=== PATIENT | female | born 1935 | race Caucasian/White ===

== ENCOUNTER → 2016-09-18 | Outpatient (CLI) | payer MEDICARE, BC ==
[~2016-09-18] MED LIST: ACTOS 15MG TAB15 MG PO; ALDACTONE 25MG25 M1 PO; ARICEPT10 MG PO; ATENOLOL50 MG PO; ATIVAN 1MG T1 MG/TAB PO; ATIVAN0.5 MG PO; ATORVASTATIN; AZILECT0.5 MG PO; BIOTIN1 POW PO; CATAPRES0.3 MG PO; CEPHALEXIN500 M1 PO; COUMADIN 5MG5 MG/TAB PO; COZAAR100 MG PO; CYMBALTA 60MG60 MG PO; CYMBALTA30 MG PO; DETROL LA4 PO; FUROSEMIDE40 MG PO; GLUCOPHAGE1000 MG PO; HYDRALAZINE50 MG PO; LASIX 40MG TABL40 MG PO; LIORESAL 1010 MG/TAB PO; LIPITOR 40MG TA40 MG PO; LIPITOR40 MG PO; LISINOPRIL10 MG PO; LOVENOX 100100 MG/ML SQ; MAG-OX 400400 MG PO; MAG-OX 400400 MG/TAB PO; METFORMIN HCL500 M1 PO; METFORMIN1000 MG PO; METRONIDAZOLE; MICRO-K LS20 MEQ PO; NAMENDA XR 28MG PO; NEURONTIN300 MG/CAP PO; NEXIUM 40MG40 MG PO; NEXIUM40 MG PO; NORVASC 5MG5 MG/TAB PO; POTASSIUM CHLO10 ME2 PO; RANITIDINE150 MG PO; REQUIP 1MG T1 MG/TAB PO; REQUIP XL6 MG PO; SENNA8.6 MG PO; SINEMET 25/101 UDTAB PO; SPECTAZOLE 1% C15 GM TP; SYNTHROID0.05 MG PO; TENORMIN 2525 MG/TAB PO; TRIAMCINOLONE A15 GM TP; TYLENOL 325MG325 MG PO; VALIUM 5MG T5 MG/TAB PO; VITAMIN B-1000 MCG/T PO; VITAMIN D31000 IU PO; WARFARIN SOD5 MG PO
== END ==
LOC: WCC 09:30
DX: I87.8 Other specified disorders of veins (principal)
CPT/HCPCS: G0463

== ENCOUNTER → 2017-02-26 | Emergency (ER) | payer MEDICARE, BC ==
[~2017-02-26] VITALS: Ht 170.2 cm; Wt 92.3 kg
[2017-02-26 11:38] VITALS: BP 154/72; PULSE 79; TEMP 97.3
== END | disposition home or self-care (01) ==
LOC: COL.ER 11:34
DX: M54.42 Lumbago with sciatica, left side (principal); G20 Parkinson's disease

== ENCOUNTER → 2017-03-17 | Outpatient (CLI) | payer MEDICARE, BC | LOC: MHCPAIN 11:24 | DX: G89.29 Other chronic pain (principal); M47.27 Other spondylosis with radiculopathy, lumbosacral region; M53.3 Sacrococcygeal disorders, not elsewhere classified; M79.2 Neuralgia and neuritis, unspecified; M79.1 Myalgia; Z87.891 Personal history of nicotine dependence; Z79.01 Long term (current) use of anticoagulants | CPT/HCPCS: G0463 ==

== ENCOUNTER → 2017-08-19 | Outpatient (CLI) | payer MEDICARE, BC | LOC: MHCPAIN 11:17 | DX: G89.29 Other chronic pain (principal); M47.27 Other spondylosis with radiculopathy, lumbosacral region; M53.3 Sacrococcygeal disorders, not elsewhere classified; M41.9 Scoliosis, unspecified; Z87.891 Personal history of nicotine dependence | CPT/HCPCS: G0463 ==

== ENCOUNTER → 2017-08-28 | Outpatient (CLI) | payer MEDICARE, BC | LOC: MHCPAIN 07:51 | DX: M47.27 Other spondylosis with radiculopathy, lumbosacral region (principal); M48.061 Spinal stenosis, lumbar region without neurogenic claudication | CPT/HCPCS: J1100; J3010; Q9967 ==

== ENCOUNTER → 2017-09-09 | Outpatient (CLI) | payer MEDICARE, BC | LOC: MHCPAIN 12:40 | DX: G89.29 Other chronic pain (principal); M47.817 Spondylosis without myelopathy or radiculopathy, lumbosacral region; M54.16 Radiculopathy, lumbar region; M53.3 Sacrococcygeal disorders, not elsewhere classified; M41.9 Scoliosis, unspecified | CPT/HCPCS: G0463 ==

== ENCOUNTER → 2017-09-10 | Outpatient (CLI) | payer MEDICARE, BC | LOC: COL.VAS 09:45 | DX: I67.89 Other cerebrovascular disease (principal) ==

== ENCOUNTER → 2017-09-25 | Outpatient (CLI) | payer MEDICARE, BC | LOC: MHCPAIN 07:35 | DX: M47.817 Spondylosis without myelopathy or radiculopathy, lumbosacral region (principal); M41.26 Other idiopathic scoliosis, lumbar region; M46.96 Unspecified inflammatory spondylopathy, lumbar region | CPT/HCPCS: J1040; J3010; Q9967 ==

== ENCOUNTER 2017-10-16 22:54 | Emergency (ER) | payer MEDICARE, BC ==
[~2017-10-16] VITALS: Ht 170.2 cm; Wt 91.8 kg
[2017-10-16 23:03] VITALS: BP 155/66; PULSE 87; TEMP 97.7
[2017-10-16] MEDS ORDERED: 00186-0370-20 IH (23:29)
[2017-10-16] MEDS ORDERED: DULCOLAX TAB5 MG RC (23:29)
[2017-10-16] MEDS ORDERED: PEPCID 20MG TAB20 MG PO (23:31)
[2017-10-16] MEDS ORDERED: LASIX 40MG TABL40 MG PO (23:32)
[2017-10-16] MEDS ORDERED: NORCO 325 MG-51 TAB PO (23:34)
[2017-10-16] MEDS ORDERED: XALATAN EYE DROPS OD (23:35)
[2017-10-16] MEDS ORDERED: COZAAR 25MG25 MG/TAB PO (23:36)
[2017-10-16] MEDS ORDERED: MIRALAX 255 GM255 GM PO (23:38)
[2017-10-16] MEDS ORDERED: ALDACTONE 25MG25 M1 PO (23:39)
[2017-10-16] MEDS ORDERED: DESYREL 50MG50 MG PO (23:40)
[2017-10-17 00:01] LABS: BASO % 0.4 % (0.0-2.0); EOS % 0.1 % (0-4.0); GRAN % 84.5 % (42.2-75.2); LYMPH # 0.9 (1.2-3.4); LYMPH % 8.9 % (20.0-51.0); MEAN CELL VOLUME 98 fl (80.0-100.0); MEAN CORPUSCULAR HGB CONC 32 g/dl (33.0-37.0); MEAN PLATELET VOLUME 10.6 fl (7.4-10.4); MONO # 0.6 (0.1-0.6); MONO % 5.5 % (1.7-9.3); PLATELET COUNT 237 K/mm3 (130-400); RED BLOOD COUNT 3.77 M/mm3 (4.10-5.30)
[2017-10-17 00:05] LABS: PARTIAL THROMBOPLASTIN TIME 31.3 SECONDS (26.0-37.0)
[2017-10-17 00:06] LABS: HEMATOCRIT 36.8 % (37.0-47.0); HEMOGLOBIN 11.8 g/dl (12.5-16.0); MEAN CORPUSCULAR HEMOGLOBIN 31 pg (27.0-31.0)
[2017-10-17 00:11] LABS: ALANINE AMINOTRANSFERASE 21 U/L (9-52); ALKALINE PHOSPHATASE 109 U/L (50-136); ANION GAP 12 mmol/L (7-16); AST,SGOT 18 U/L (15-37); BILIRUBIN,TOTAL 0.4 mg/dL (0.0-1.0); BLOOD UREA NITROGEN 57 mg/dL (7-17); C-REACTIVE PROTEIN < 0.5 mg/dL (0.0-0.9); CALCIUM 9.7 mg/dL (8.4-10.2); CARBON DIOXIDE 26 mmol/L (22-30); CHLORIDE 100 mmol/L (98-107); CREATININE, serum 1.79 mg/dL (0.52-1.25); GLUCOSE 139 mg/dL (74-106); LIPASE 152 U/L (23-300); MAGNESIUM 2.3 mg/dL (1.6-2.3); PHOSPHOROUS 4.6 mg/dL (2.5-4.5); POTASSIUM 4.5 mmol/L (3.4-5.0); SODIUM 138 mmol/L (137-145); TOTAL PROTEIN 7.2 gm/dL (6.4-8.2)
[2017-10-17 00:19] LABS: TROPONIN-I 0.018 ng/mL (0.000-0.034)
[2017-10-17 00:49] LABS: COLLECTION METHOD CLEAN CATCH
[2017-10-17 01:04] LABS: MUCOUS Present /lpf; PH 5 (5-8); SQUAMOUS EPITHELIAL 0-2 /hpf; URINE APPEARANCE Hazy; URINE BACTERIA None Seen /hpf; URINE BILIRUBIN Negative (NEGATIVE); URINE BLOOD Negative (NEGATIVE); URINE COLOR Yellow; URINE GLUCOSE Negative (NEGATIVE); URINE KETONE Trace (NEGATIVE); URINE LEUKOCYTE ESTERASE Trace (NEGATIVE); URINE NITRATE Negative (NEGATIVE); URINE PROTEIN(semi-quant) Negative (NEGATIVE); URINE RBC 0-2 /hpf; URINE UROBILINOGEN Negative (NEGATIVE)
[2017-10-17] MEDS ORDERED: CEFTIN500 MG PO (03:09)
== END 2017-10-17 03:23 | disposition home or self-care (01) ==
LOC: COL.ER 22:54
PROVIDERS: Emergency Medicine
DX: N39.0 Urinary tract infection, site not specified (principal); G20 Parkinson's disease; Z86.718 Personal history of other venous thrombosis and embolism; Z90.710 Acquired absence of both cervix and uterus; Z79.01 Long term (current) use of anticoagulants; Z79.52 Long term (current) use of systemic steroids
CPT/HCPCS: C9113; J0696; J2270; J2405; J7040; J7050

== ENCOUNTER 2017-10-28 01:35 | Emergency (ER) | payer MEDICARE, BC ==
[~2017-10-28] VITALS: Ht 170.2 cm; Wt 88.2 kg
[~2017-10-28 01:35] MED LIST changes: +00186-0370-20 IH; +CEFTIN500 MG PO; +COZAAR 25MG25 MG/TAB PO; +DESYREL 50MG50 MG PO; +DULCOLAX TAB5 MG RC; +MIRALAX 255 GM255 GM PO; +NORCO 325 MG-51 TAB PO; +PEPCID 20MG TAB20 MG PO; +XALATAN EYE DROPS OD
[2017-10-28 01:42] VITALS: TEMP 98.7
[2017-10-28 02:01] LABS: BASO % 0.3 % (0.0-2.0); EOS # 0.1 (0.0-0.7); EOS % 0.7 % (0-4.0); GRAN # 5.5 (1.4-6.5); GRAN % 72.2 % (42.2-75.2); LYMPH # 1.3 (1.2-3.4); LYMPH % 17.6 % (20.0-51.0); MEAN CELL VOLUME 98 fl (80.0-100.0); MEAN CORPUSCULAR HGB CONC 32 g/dl (33.0-37.0); MEAN PLATELET VOLUME 10.4 fl (7.4-10.4); MONO # 0.6 (0.1-0.6); MONO % 8.4 % (1.7-9.3); PLATELET COUNT 194 K/mm3 (130-400); RED BLOOD COUNT 3.39 M/mm3 (4.10-5.30); REDCELL DISTRIBUTION WIDTH-CV 14.3 % (11.5-14.5)
[2017-10-28 02:02] LABS: HEMATOCRIT 33.2 % (37.0-47.0); HEMOGLOBIN 10.5 g/dl (12.5-16.0); MEAN CORPUSCULAR HEMOGLOBIN 31 pg (27.0-31.0)
[2017-10-28 02:08] LABS: INR 1.9 (0.8-3.0); PROTHROMBIN TIME 22.4 SECONDS (9.7-12.8)
[2017-10-28 02:28] LABS: ALBUMIN 3.5 gm/dL (3.5-5.0); BILIRUBIN,TOTAL 0.2 mg/dL (0.0-1.0); CALCIUM 8.9 mg/dL (8.4-10.2); CREATININE, serum 1.46 mg/dL (0.52-1.25); POTASSIUM 4.2 mmol/L (3.4-5.0); TOTAL PROTEIN 6.5 gm/dL (6.4-8.2)
[2017-10-28 02:39] LABS: TROPONIN-I 0.014 ng/mL (0.000-0.034)
[2017-10-28 03:37] LABS: COLLECTION METHOD CLEAN CATCH
[2017-10-28 03:47] LABS: MUCOUS Present /lpf; PH 5 (5-8); SQUAMOUS EPITHELIAL 0-2 /hpf; URINE APPEARANCE Clear; URINE BACTERIA None Seen /hpf; URINE BILIRUBIN Negative (NEGATIVE); URINE BLOOD Negative (NEGATIVE); URINE COLOR Yellow; URINE GLUCOSE Negative (NEGATIVE); URINE KETONE Trace (NEGATIVE); URINE LEUKOCYTE ESTERASE Negative (NEGATIVE); URINE NITRATE Negative (NEGATIVE); URINE PROTEIN(semi-quant) Negative (NEGATIVE); URINE RBC 0-2 /hpf; URINE UROBILINOGEN Negative (NEGATIVE)
[2017-10-28] MEDS ORDERED: CARAFATE 1GM1 G PO (04:12)
[2017-10-28 05:03] VITALS: BP 156/54; PULSE 70
== END 2017-10-28 05:08 | disposition home or self-care (01) ==
LOC: COL.ER 01:35
PROVIDERS: Emergency Medicine; Physician Assistant
DX: R10.13 Epigastric pain (principal); I10 Essential (primary) hypertension; G20 Parkinson's disease; Z86.718 Personal history of other venous thrombosis and embolism; Z98.890 Other specified postprocedural states; Z79.01 Long term (current) use of anticoagulants; Z79.51 Long term (current) use of inhaled steroids; Z88.2 Allergy status to sulfonamides
CPT/HCPCS: C9113; J2270; J2405; J7030

== ENCOUNTER 2017-12-18 10:57 | Inpatient (IN) | payer MEDICARE, BC ==
[~2017-12-18] VITALS: Ht 170.2 cm; Wt 91.8 kg
[~2017-12-18 10:57] MED LIST changes: -AZILECT0.5 MG PO; +AZILECT1 MG PO; +CARAFATE 1GM1 G PO
[2017-12-18 11:24] LABS: BASO % 0.3 % (0.0-2.0); EOS % 0.2 % (0-4.0); GRAN # 8.8 (1.4-6.5); GRAN % 84.2 % (42.2-75.2); LYMPH % 9.7 % (20.0-51.0); MEAN CELL VOLUME 97 fl (80.0-100.0); MEAN CORPUSCULAR HGB CONC 31 g/dl (33.0-37.0); MEAN PLATELET VOLUME 10.5 fl (7.4-10.4); MONO # 0.5 (0.1-0.6); MONO % 4.9 % (1.7-9.3); PLATELET COUNT 279 K/mm3 (130-400); RED BLOOD COUNT 2.83 M/mm3 (4.10-5.30); REDCELL DISTRIBUTION WIDTH-CV 14.8 % (11.5-14.5)
[2017-12-18 11:27] LABS: HEMATOCRIT 27.4 % (37.0-47.0); HEMOGLOBIN 8.5 g/dl (12.5-16.0); INR 3.1 (0.8-3.0); MEAN CORPUSCULAR HEMOGLOBIN 30 pg (27.0-31.0); PROTHROMBIN TIME 35.6 SECONDS (9.7-12.8)
[2017-12-18 11:35] LABS: ALANINE AMINOTRANSFERASE 18 U/L (9-52); ALKALINE PHOSPHATASE 106 U/L (50-136); ANION GAP 14 mmol/L (7-16); AST,SGOT 19 U/L (15-37); BILIRUBIN,TOTAL 0.5 mg/dL (0.0-1.0); BLOOD UREA NITROGEN 57 mg/dL (7-17); CALCIUM 9.4 mg/dL (8.4-10.2); CARBON DIOXIDE 24 mmol/L (22-30); CHLORIDE 103 mmol/L (98-107); CREATININE, serum 1.34 mg/dL (0.52-1.25); GLUCOSE 163 mg/dL (74-106); LIPASE 187 U/L (23-300); POTASSIUM 4.6 mmol/L (3.4-5.0); SODIUM 141 mmol/L (137-145); TOTAL PROTEIN 7.6 gm/dL (6.4-8.2)
[2017-12-18 11:37] LABS: C-REACTIVE PROTEIN < 0.5 mg/dL (0.0-0.9)
[2017-12-18] MEDS ORDERED: COUMADIN 5MG5 MG/TAB PO ×2 (14:31→14:32)
[2017-12-18] MEDS ORDERED: LASIX 20MG TABL20 MG PO (15:08)
[2017-12-18] MEDS ORDERED: REQUIP XL2 MG PO (15:10)
[2017-12-18] MEDS ORDERED: AMITIZA24 MCG PO (15:16)
[2017-12-18] MEDS ORDERED: CONSTULOSE 20G/30ML PO (15:19)
[2017-12-18] MEDS ORDERED: ATIVAN 0.50.5 MG/TAB PO (15:20)
[2017-12-18 17:12] LABS: INR 3.1 (0.8-3.0); PROTHROMBIN TIME 35.1 SECONDS (9.7-12.8)
[2017-12-18 17:29] LABS: HEMATOCRIT 24.4 % (37.0-47.0); HEMOGLOBIN 7.6 g/dl (12.5-16.0)
[2017-12-18 18:43] VITALS: BP 133/33; PULSE 77; TEMP 97.9
[2017-12-18 23:40] LABS: HEMATOCRIT 22.4 % (37.0-47.0); HEMOGLOBIN 6.9 g/dl (12.5-16.0)
[2017-12-18 23:45] VITALS: BP 133/40; PULSE 78; TEMP 97.5
[2017-12-19] VITALS (14 sets, daily range): BP systolic 122–152; BP diastolic 38–62; PULSE 75–90; TEMP 96.7–98.1
[2017-12-19 05:04] LABS: HEMATOCRIT 25.8 % (37.0-47.0); HEMOGLOBIN 8.2 g/dl (12.5-16.0)
[2017-12-19 05:08] LABS: INR 2.3 (0.8-3.0); PROTHROMBIN TIME 26.1 SECONDS (9.7-12.8)
[2017-12-19 05:12] LABS: CALCIUM 8.5 mg/dL (8.4-10.2); CREATININE, serum 1.22 mg/dL (0.52-1.25); POTASSIUM 4.6 mmol/L (3.4-5.0)
[2017-12-19 10:53] LABS: HEMATOCRIT 25.1 % (37.0-47.0)
[2017-12-19 15:11] LABS: HEMATOCRIT 26.8 % (37.0-47.0); HEMOGLOBIN 8.2 g/dl (12.5-16.0)
[2017-12-19 21:12] LABS: HEMATOCRIT 25.5 % (37.0-47.0); HEMOGLOBIN 7.8 g/dl (12.5-16.0)
[2017-12-20] VITALS (13 sets, daily range): BP systolic 124–153; BP diastolic 27–85; PULSE 66–86; TEMP 97.6–98.6
[2017-12-20 07:23] LABS: BASO % 0.1 % (0.0-2.0); EOS % 0.6 % (0-4.0); GRAN % 73.5 % (42.2-75.2); LYMPH # 1.1 (1.2-3.4); LYMPH % 16.2 % (20.0-51.0); MEAN CELL VOLUME 98 fl (80.0-100.0); MEAN CORPUSCULAR HGB CONC 31 g/dl (33.0-37.0); MEAN PLATELET VOLUME 10.5 fl (7.4-10.4); MONO # 0.6 (0.1-0.6); MONO % 8.7 % (1.7-9.3); PLATELET COUNT 200 K/mm3 (130-400); REDCELL DISTRIBUTION WIDTH-CV 15.9 % (11.5-14.5)
[2017-12-20 07:28] LABS: HEMATOCRIT 22.6 % (37.0-47.0); MEAN CORPUSCULAR HEMOGLOBIN 30 pg (27.0-31.0)
[2017-12-20 07:52] LABS: CALCIUM 8.4 mg/dL (8.4-10.2); CREATININE, serum 1.03 mg/dL (0.52-1.25); POTASSIUM 4.5 mmol/L (3.4-5.0)
[2017-12-20 18:56] LABS: HEMATOCRIT 31.6 % (37.0-47.0); HEMOGLOBIN 10.1 g/dl (12.5-16.0)
[2017-12-21 03:59] VITALS: BP 153/51; PULSE 77; TEMP 97.8
[2017-12-21 07:22] VITALS: BP 159/71; PULSE 73; TEMP 98.4
[2017-12-21 10:34] LABS: BASO % 0.3 % (0.0-2.0); EOS % 0.6 % (0-4.0); GRAN # 5.1 (1.4-6.5); GRAN % 76.4 % (42.2-75.2); LYMPH # 0.9 (1.2-3.4); MEAN CELL VOLUME 95 fl (80.0-100.0); MEAN CORPUSCULAR HGB CONC 32 g/dl (33.0-37.0); MEAN PLATELET VOLUME 10.5 fl (7.4-10.4); MONO # 0.5 (0.1-0.6); MONO % 7.7 % (1.7-9.3); PLATELET COUNT 198 K/mm3 (130-400); RED BLOOD COUNT 3.08 M/mm3 (4.10-5.30); REDCELL DISTRIBUTION WIDTH-CV 17.1 % (11.5-14.5)
[2017-12-21 10:35] LABS: HEMATOCRIT 29.3 % (37.0-47.0); HEMOGLOBIN 9.4 g/dl (12.5-16.0); MEAN CORPUSCULAR HEMOGLOBIN 31 pg (27.0-31.0)
[2017-12-21 10:43] LABS: CALCIUM 8.8 mg/dL (8.4-10.2); CREATININE, serum 0.95 mg/dL (0.52-1.25); POTASSIUM 4.4 mmol/L (3.4-5.0)
[2017-12-21] MEDS ORDERED: AMITIZA24 MCG PO (11:54)
[2017-12-21] MEDS ORDERED: CONSTULOSE 20G/30ML PO (11:55)
[2017-12-21] MEDS ORDERED: SLOW FE142 MG PO (11:59)
== END 2017-12-21 13:25 | disposition home or self-care (01) | DRG 378 ==
LOC: COL.ER 10:57 → MEDICAL 13:28
PROVIDERS: Emergency Medicine; Hospitalist; Internal Medicine; Internal Medicine Gastroenterology; Physician Assistant
PROC: 0DJ08ZZ Inspection of Upper Intestinal Tract, Via Natural or Artificial Opening Endoscopic (ICD-10-PCS; principal; 2017-12-19 12:00)
DX: K31.811 Angiodysplasia of stomach and duodenum with bleeding (principal); D62 Acute posthemorrhagic anemia; K31.7 Polyp of stomach and duodenum; K92.1 Melena; I10 Essential (primary) hypertension; E11.42 Type 2 diabetes mellitus with diabetic polyneuropathy; G20 Parkinson's disease; Z86.711 Personal history of pulmonary embolism; Z79.01 Long term (current) use of anticoagulants; F03.90 Unspecified dementia, unspecified severity, without behavioral disturbance, psychotic disturbance, mood disturbance, and anxiety; Z87.891 Personal history of nicotine dependence; D50.0 Iron deficiency anemia secondary to blood loss (chronic)
CPT/HCPCS: 99223-AI; 99233-AI; 99239; C9113; J2270; J2405; J2704; J7030; J7040; P9016; Q9967

== ENCOUNTER → 2018-01-01 | Outpatient (CLI) | payer MEDICARE, BC ==
[~2018-01-01] MED LIST changes: +AMITIZA24 MCG PO; +ATIVAN 0.50.5 MG/TAB PO; +CONSTULOSE 20G/30ML PO; +LASIX 20MG TABL20 MG PO; +REQUIP XL2 MG PO; +SLOW FE142 MG PO
== END ==
LOC: COL.VAS 11:02
DX: I82.612 Acute embolism and thrombosis of superficial veins of left upper extremity (principal); Z86.718 Personal history of other venous thrombosis and embolism

== ENCOUNTER 2018-01-06 01:22 | Emergency (ER) | payer MEDICARE, BC ==
[~2018-01-06] VITALS: Ht 170.2 cm; Wt 82.7 kg
[2018-01-06 01:26] VITALS: BP 143/65; TEMP 97
[2018-01-06 01:42] LABS: BASO % 0.4 % (0.0-2.0); EOS % 0.5 % (0-4.0); GRAN # 5.9 (1.4-6.5); GRAN % 74.8 % (42.2-75.2); HEMATOCRIT 37.8 % (37.0-47.0); HEMOGLOBIN 11.8 g/dl (12.5-16.0); LYMPH # 1.3 (1.2-3.4); LYMPH % 16.1 % (20.0-51.0); MEAN CELL VOLUME 94 fl (80.0-100.0); MEAN CORPUSCULAR HEMOGLOBIN 29 pg (27.0-31.0); MEAN CORPUSCULAR HGB CONC 31 g/dl (33.0-37.0); MEAN PLATELET VOLUME 9.8 fl (7.4-10.4); MONO # 0.6 (0.1-0.6); MONO % 7.7 % (1.7-9.3); PLATELET COUNT 293 K/mm3 (130-400); RED BLOOD COUNT 4.03 M/mm3 (4.10-5.30); REDCELL DISTRIBUTION WIDTH-CV 14.7 % (11.5-14.5)
[2018-01-06 01:51] LABS: ALBUMIN 4.2 gm/dL (3.5-5.0); BILIRUBIN,TOTAL 0.5 mg/dL (0.0-1.0); CALCIUM 9.6 mg/dL (8.4-10.2); CREATININE, serum 1.4 mg/dL (0.52-1.25); POTASSIUM 4.1 mmol/L (3.4-5.0)
[2018-01-06 03:24] LABS: COLLECTION METHOD CLEAN CATCH
[2018-01-06 03:31] LABS: MUCOUS Present /lpf; PH 5 (5-8); URINE APPEARANCE Clear; URINE BACTERIA None Seen /hpf; URINE BILIRUBIN Negative (NEGATIVE); URINE BLOOD Negative (NEGATIVE); URINE COLOR Yellow; URINE GLUCOSE Negative (NEGATIVE); URINE KETONE Trace (NEGATIVE); URINE LEUKOCYTE ESTERASE Negative (NEGATIVE); URINE NITRATE Negative (NEGATIVE); URINE PROTEIN(semi-quant) Negative (NEGATIVE); URINE RBC None Seen /hpf; URINE UROBILINOGEN Negative (NEGATIVE)
[2018-01-06 04:49] VITALS: PULSE 80
== END 2018-01-06 04:50 | disposition home or self-care (01) ==
LOC: COL.ER 01:22
PROVIDERS: Emergency Medicine
DX: E86.0 Dehydration (principal); R10.9 Unspecified abdominal pain; I10 Essential (primary) hypertension; K21.9 Gastro-esophageal reflux disease without esophagitis; F03.90 Unspecified dementia, unspecified severity, without behavioral disturbance, psychotic disturbance, mood disturbance, and anxiety; G20 Parkinson's disease; E11.40 Type 2 diabetes mellitus with diabetic neuropathy, unspecified; Z90.49 Acquired absence of other specified parts of digestive tract; Z87.442 Personal history of urinary calculi; Z86.718 Personal history of other venous thrombosis and embolism; Z90.710 Acquired absence of both cervix and uterus
CPT/HCPCS: J2765; J3010; J7030

== ENCOUNTER → 2018-02-17 | Outpatient (CLI) | payer MEDICARE, BC | LOC: COL.RAD 07:47 | DX: R68.81 Early satiety (principal) | CPT/HCPCS: A9541 ==

== ENCOUNTER → 2018-04-29 | Outpatient (CLI) | payer MEDICARE, BC | LOC: MHCPAIN 10:09 | DX: G89.29 Other chronic pain (principal); M47.817 Spondylosis without myelopathy or radiculopathy, lumbosacral region; M54.16 Radiculopathy, lumbar region; M53.3 Sacrococcygeal disorders, not elsewhere classified; M41.9 Scoliosis, unspecified | CPT/HCPCS: G0463 ==

== ENCOUNTER → 2018-04-29 | Outpatient (CLI) | payer MEDICARE, BC | LOC: COL.VAS 13:30 | DX: Z13.6 Encounter for screening for cardiovascular disorders (principal); M79.662 Pain in left lower leg ==

== ENCOUNTER 2018-05-14 12:22 | Emergency (ER) | payer MEDICARE, BC ==
[~2018-05-14] VITALS: Ht 170.2 cm; Wt 80.5 kg
[2018-05-14 12:39] VITALS: TEMP 97.8
[2018-05-14 13:38] LABS: BASO % 0.3 % (0.0-2.0); EOS # 0.1 (0.0-0.7); GRAN # 4.5 (1.4-6.5); GRAN % 75.4 % (42.2-75.2); HEMOGLOBIN 10.6 g/dl (12.5-16.0); LYMPH # 0.9 (1.2-3.4); LYMPH % 15.3 % (20.0-51.0); MEAN CELL VOLUME 94 fl (80.0-100.0); MEAN CORPUSCULAR HEMOGLOBIN 30 pg (27.0-31.0); MEAN CORPUSCULAR HGB CONC 32 g/dl (33.0-37.0); MEAN PLATELET VOLUME 10.3 fl (7.4-10.4); MONO # 0.5 (0.1-0.6); MONO % 7.5 % (1.7-9.3); PLATELET COUNT 230 K/mm3 (130-400); RED BLOOD COUNT 3.54 M/mm3 (4.10-5.30); REDCELL DISTRIBUTION WIDTH-CV 15.3 % (11.5-14.5)
[2018-05-14 13:40] LABS: HEMATOCRIT 33.4 % (37.0-47.0)
[2018-05-14 13:43] LABS: INR 1.3 (0.8-3.0); PROTHROMBIN TIME 15.2 SECONDS (9.7-12.8)
[2018-05-14 13:45] LABS: PARTIAL THROMBOPLASTIN TIME 29.2 SECONDS (26.0-37.0)
[2018-05-14 13:51] LABS: ALANINE AMINOTRANSFERASE 17 U/L (9-52); ALBUMIN 3.9 gm/dL (3.5-5.0); ALKALINE PHOSPHATASE 126 U/L (50-136); ANION GAP 8 mmol/L (7-16); AST,SGOT 18 U/L (15-37); BILIRUBIN,TOTAL 0.6 mg/dL (0.0-1.0); BLOOD UREA NITROGEN 33 mg/dL (7-17); CALCIUM 9.2 mg/dL (8.4-10.2); CARBON DIOXIDE 27 mmol/L (22-30); CHLORIDE 105 mmol/L (98-107); CREATININE, serum 1.36 mg/dL (0.52-1.25); GLUCOSE 123 mg/dL (74-106); MAGNESIUM 1.9 mg/dL (1.6-2.3); PHOSPHOROUS 3.6 mg/dL (2.5-4.5); SODIUM 140 mmol/L (137-145); TOTAL PROTEIN 7.1 gm/dL (6.4-8.2)
[2018-05-14 14:03] LABS: TROPONIN-I < 0.012 ng/mL (0.000-0.034)
[2018-05-14 14:37] LABS: COLLECTION METHOD CLEAN CATCH
[2018-05-14 14:58] LABS: HYALINE CAST >12 /lpf; PH 5 (5-8); SQUAMOUS EPITHELIAL 0-2 /hpf; URINE APPEARANCE Clear; URINE BACTERIA None Seen /hpf; URINE BILIRUBIN Negative (NEGATIVE); URINE BLOOD Negative (NEGATIVE); URINE COLOR Yellow; URINE GLUCOSE Negative (NEGATIVE); URINE KETONE Negative (NEGATIVE); URINE LEUKOCYTE ESTERASE Negative (NEGATIVE); URINE NITRATE Negative (NEGATIVE); URINE PROTEIN(semi-quant) Negative (NEGATIVE); URINE RBC None Seen /hpf; URINE UROBILINOGEN Negative (NEGATIVE)
[2018-05-14 16:53] VITALS: BP 155/56; PULSE 80
== END 2018-05-14 16:54 | disposition home or self-care (01) ==
LOC: COL.ER 12:22
PROVIDERS: Emergency Medicine
DX: R53.1 Weakness (principal); E11.9 Type 2 diabetes mellitus without complications; F02.80 Dementia in other diseases classified elsewhere, unspecified severity, without behavioral disturbance, psychotic disturbance, mood disturbance, and anxiety; G20 Parkinson's disease; Z86.711 Personal history of pulmonary embolism; Z86.718 Personal history of other venous thrombosis and embolism; Z90.710 Acquired absence of both cervix and uterus; Z90.49 Acquired absence of other specified parts of digestive tract
CPT/HCPCS: J7030; Q9967

== ENCOUNTER → 2018-05-21 | Outpatient (CLI) | payer MEDICARE, BC | LOC: MHCPAIN 10:31 | DX: M47.817 Spondylosis without myelopathy or radiculopathy, lumbosacral region (principal); M54.16 Radiculopathy, lumbar region | CPT/HCPCS: J1040; Q9967 ==

== ENCOUNTER 2018-06-01 17:13 | Emergency (ER) | payer MEDICARE, BC ==
[~2018-06-01] VITALS: Ht 167.6 cm; Wt 75.5 kg
[2018-06-01 17:25] VITALS: TEMP 97.5
[2018-06-01 18:38] LABS: BASO % 0.3 % (0.0-2.0); EOS % 0.2 % (0-4.0); GRAN # 8.2 (1.4-6.5); GRAN % 83.9 % (42.2-75.2); HEMATOCRIT 39.6 % (37.0-47.0); HEMOGLOBIN 12.6 g/dl (12.5-16.0); LYMPH # 0.8 (1.2-3.4); LYMPH % 8.6 % (20.0-51.0); MEAN CELL VOLUME 95 fl (80.0-100.0); MEAN CORPUSCULAR HEMOGLOBIN 30 pg (27.0-31.0); MEAN CORPUSCULAR HGB CONC 32 g/dl (33.0-37.0); MONO # 0.6 (0.1-0.6); MONO % 6.4 % (1.7-9.3); PLATELET COUNT 278 K/mm3 (130-400); RED BLOOD COUNT 4.19 M/mm3 (4.10-5.30); REDCELL DISTRIBUTION WIDTH-CV 15.2 % (11.5-14.5)
[2018-06-01 18:43] LABS: INR 1.4 (0.8-3.0); PROTHROMBIN TIME 15.4 SECONDS (9.7-12.8)
[2018-06-01 18:54] LABS: ALANINE AMINOTRANSFERASE 27 U/L (9-52); ALBUMIN 4.4 gm/dL (3.5-5.0); ALKALINE PHOSPHATASE 136 U/L (50-136); ANION GAP 10 mmol/L (7-16); AST,SGOT 21 U/L (15-37); BILIRUBIN,TOTAL 0.6 mg/dL (0.0-1.0); BLOOD UREA NITROGEN 38 mg/dL (7-17); CALCIUM 10.2 mg/dL (8.4-10.2); CARBON DIOXIDE 28 mmol/L (22-30); CHLORIDE 102 mmol/L (98-107); CREATININE, serum 1.44 mg/dL (0.52-1.25); GLUCOSE 122 mg/dL (74-106); LIPASE 217 U/L (23-300); POTASSIUM 3.9 mmol/L (3.4-5.0); SODIUM 139 mmol/L (137-145); TOTAL PROTEIN 7.8 gm/dL (6.4-8.2)
[2018-06-01 19:01] LABS: C-REACTIVE PROTEIN < 0.5 mg/dL (0.0-0.9)
[2018-06-01 19:03] LABS: TROPONIN-I < 0.012 ng/mL (0.000-0.034)
[2018-06-01] MEDS ORDERED: ZOFRAN 4MG T4 MG/TAB PO (21:57)
[2018-06-01] MEDS ORDERED: NORCO 325 MG-51 TAB PO (21:57)
[2018-06-01 22:07] VITALS: BP 134/70; PULSE 70
== END 2018-06-01 22:07 | disposition home or self-care (01) ==
LOC: COL.ER 17:13
PROVIDERS: Emergency Medicine
DX: G89.29 Other chronic pain (principal); M54.5 Low back pain; R10.11 Right upper quadrant pain; R11.0 Nausea; R10.32 Left lower quadrant pain; F03.90 Unspecified dementia, unspecified severity, without behavioral disturbance, psychotic disturbance, mood disturbance, and anxiety; G20 Parkinson's disease; I10 Essential (primary) hypertension; E11.9 Type 2 diabetes mellitus without complications; Z86.711 Personal history of pulmonary embolism; Z86.718 Personal history of other venous thrombosis and embolism; Z79.01 Long term (current) use of anticoagulants
CPT/HCPCS: J2270; J2405; J7030; Q9967

== ENCOUNTER 2018-06-07 17:37 | Emergency (ER) | payer MEDICARE, BC ==
[~2018-06-07 17:37] MED LIST changes: +ZOFRAN 4MG T4 MG/TAB PO
[2018-06-07 17:40] VITALS: TEMP 97.9
[2018-06-07 18:19] LABS: BASO % 0.4 % (0.0-2.0); EOS % 0.5 % (0-4.0); GRAN # 6.4 (1.4-6.5); GRAN % 79.1 % (42.2-75.2); HEMATOCRIT 41.2 % (37.0-47.0); MEAN CELL VOLUME 97 fl (80.0-100.0); MEAN CORPUSCULAR HEMOGLOBIN 30 pg (27.0-31.0); MEAN CORPUSCULAR HGB CONC 32 g/dl (33.0-37.0); MEAN PLATELET VOLUME 10.7 fl (7.4-10.4); MONO # 0.5 (0.1-0.6); MONO % 6.5 % (1.7-9.3); PLATELET COUNT 254 K/mm3 (130-400); RED BLOOD COUNT 4.27 M/mm3 (4.10-5.30); REDCELL DISTRIBUTION WIDTH-CV 15.5 % (11.5-14.5)
[2018-06-07 18:23] LABS: INR 1.2 (0.8-3.0); PROTHROMBIN TIME 13.1 SECONDS (9.7-12.8)
[2018-06-07 18:44] LABS: TROPONIN-I 0.017 ng/mL (0.000-0.034)
[2018-06-07 19:15] LABS: BILIRUBIN,TOTAL 0.4 mg/dL (0.0-1.0); CALCIUM 9.5 mg/dL (8.4-10.2); CREATININE, serum 1.29 mg/dL (0.52-1.25); POTASSIUM 3.4 mmol/L (3.4-5.0); TOTAL PROTEIN 7.1 gm/dL (6.4-8.2)
[2018-06-07 20:07] LABS: C-REACTIVE PROTEIN 1.1 mg/dL (0.0-0.9)
[2018-06-07 20:45] VITALS: BP 137/66; PULSE 78
== END 2018-06-07 20:45 | disposition home or self-care (01) ==
LOC: COL.ER 17:37
PROVIDERS: Emergency Medicine
DX: R10.84 Generalized abdominal pain (principal); I10 Essential (primary) hypertension; G20 Parkinson's disease; K21.9 Gastro-esophageal reflux disease without esophagitis; E11.40 Type 2 diabetes mellitus with diabetic neuropathy, unspecified; Z90.710 Acquired absence of both cervix and uterus; Z86.711 Personal history of pulmonary embolism; Z86.718 Personal history of other venous thrombosis and embolism; Z87.442 Personal history of urinary calculi; Z90.49 Acquired absence of other specified parts of digestive tract
CPT/HCPCS: J1170; J2405; J2550; J3010; J7030

== ENCOUNTER 2018-06-22 18:38 | Emergency (ER) | payer MEDICARE, BC ==
[~2018-06-22] VITALS: Ht 170.2 cm; Wt 61.4 kg
[2018-06-22 18:46] VITALS: TEMP 97
[2018-06-22 19:25] LABS: BASO % 0.5 % (0.0-2.0); EOS # 0.1 (0.0-0.7); EOS % 0.8 % (0-4.0); GRAN # 6.4 (1.4-6.5); GRAN % 80.5 % (42.2-75.2); HEMOGLOBIN 12.9 g/dl (12.5-16.0); LYMPH # 0.9 (1.2-3.4); LYMPH % 11.3 % (20.0-51.0); MEAN CELL VOLUME 98 fl (80.0-100.0); MEAN CORPUSCULAR HEMOGLOBIN 31 pg (27.0-31.0); MEAN CORPUSCULAR HGB CONC 32 g/dl (33.0-37.0); MEAN PLATELET VOLUME 10.5 fl (7.4-10.4); MONO # 0.5 (0.1-0.6); MONO % 6.3 % (1.7-9.3); PLATELET COUNT 363 K/mm3 (130-400); RED BLOOD COUNT 4.19 M/mm3 (4.10-5.30); REDCELL DISTRIBUTION WIDTH-CV 16.2 % (11.5-14.5)
[2018-06-22 19:50] LABS: ALBUMIN 4.1 gm/dL (3.5-5.0); BILIRUBIN,TOTAL 0.6 mg/dL (0.0-1.0); C-REACTIVE PROTEIN 0.8 mg/dL (0.0-0.9); CALCIUM 9.5 mg/dL (8.4-10.2); CREATININE, serum 1.46 mg/dL (0.52-1.25); TOTAL PROTEIN 7.2 gm/dL (6.4-8.2)
[2018-06-22 21:22] VITALS: BP 149/69; PULSE 84
== END 2018-06-22 21:25 | disposition short-term general hospital (02) ==
LOC: COL.ER 18:38
PROVIDERS: Family Medicine
DX: K55.9 Vascular disorder of intestine, unspecified (principal); K21.9 Gastro-esophageal reflux disease without esophagitis; G25.81 Restless legs syndrome; G20 Parkinson's disease; F02.80 Dementia in other diseases classified elsewhere, unspecified severity, without behavioral disturbance, psychotic disturbance, mood disturbance, and anxiety; Z79.899 Other long term (current) drug therapy
CPT/HCPCS: J2405; J3010; J7030

== ENCOUNTER → 2018-07-25 | Outpatient (REF) ==
[2018-07-25 22:46] LABS: COLLECTION METHOD CLEAN CATCH
[2018-07-25 22:53] LABS: MUCOUS Present /lpf; PH 5 (5-8); SQUAMOUS EPITHELIAL 0-2 /hpf; URINE APPEARANCE Clear; URINE BACTERIA None Seen /hpf; URINE BILIRUBIN Negative (NEGATIVE); URINE BLOOD Negative (NEGATIVE); URINE COLOR Yellow; URINE GLUCOSE Negative (NEGATIVE); URINE KETONE Trace (NEGATIVE); URINE LEUKOCYTE ESTERASE Negative (NEGATIVE); URINE NITRATE Negative (NEGATIVE); URINE PROTEIN(semi-quant) Negative (NEGATIVE); URINE RBC 0-2 /hpf; URINE UROBILINOGEN Negative (NEGATIVE); URINE WBC 0-2 /hpf
== END ==
LOC: ZCOL.LAB 22:46
PROVIDERS: Internal Medicine
DX: N39.0 Urinary tract infection, site not specified (principal)

== ENCOUNTER 2018-09-09 10:24 | Inpatient (IN) | payer MEDICARE, BC | END 2018-09-12 16:55 | disposition home health service (06) | DRG 378 | LOC: COL.ER 10:24 → ICU 11:28 → JCC 09-10 14:00 | PROVIDERS: ADMIT Internal Medicine | PROC: 0DJD8ZZ Inspection of Lower Intestinal Tract, Via Natural or Artificial Opening Endoscopic (ICD-10-PCS; principal; 2018-09-10) | PROC: 0DB68ZX Excision of Stomach, Via Natural or Artificial Opening Endoscopic, Diagnostic (ICD-10-PCS; 2018-09-10) | DX: K31.811 Angiodysplasia of stomach and duodenum with bleeding (principal); D62 Acute posthemorrhagic anemia; E87.2 Acidosis; N17.9 Acute kidney failure, unspecified; I25.10 Atherosclerotic heart disease of native coronary artery without angina pectoris; I12.9 Hypertensive chronic kidney disease with stage 1 through stage 4 chronic kidney disease, or unspecified chronic kidney disease; K25.4 Chronic or unspecified gastric ulcer with hemorrhage; E11.22 Type 2 diabetes mellitus with diabetic chronic kidney disease; K31.7 Polyp of stomach and duodenum; N18.9 Chronic kidney disease, unspecified; G20 Parkinson's disease; E11.40 Type 2 diabetes mellitus with diabetic neuropathy, unspecified; F03.90 Unspecified dementia, unspecified severity, without behavioral disturbance, psychotic disturbance, mood disturbance, and anxiety; I73.9 Peripheral vascular disease, unspecified; F41.8 Other specified anxiety disorders; Z86.718 Personal history of other venous thrombosis and embolism; Z79.01 Long term (current) use of anticoagulants; Z86.711 Personal history of pulmonary embolism; Z87.891 Personal history of nicotine dependence; E03.9 Hypothyroidism, unspecified ==

== ENCOUNTER 2018-10-16 11:25 | Emergency (ER) | payer MEDICARE, BC ==
[~2018-10-16] VITALS: Ht 170.2 cm; Wt 72.3 kg
[~2018-10-16 11:25] MED LIST changes: +ADDERALL XR 10M10 MG PO; +ASPIRIN 81M81 MG/TA2 PO; +FERROUS SU325 MG/TAB PO; +MIRALAX PA17 GM/Dose PO; +NORCO 325 MG-7.1 TAB PO; +PLAVIX 75MG TAB75 MG PO; +PROTONIX 40MG T40 MG PO; +SENNA-LAX8.6 MG PO; -SENNA8.6 MG PO; +TESSALON P100 MG/CAP PO; +ZYLOPRIM 100MG100 MG PO
[2018-10-16 11:34] VITALS: TEMP 97.6
[2018-10-16] MEDS ORDERED: LIDODERM 5% PATC1 EA TP (12:47)
[2018-10-16 12:54] VITALS: BP 124/82; PULSE 78
== END 2018-10-16 12:54 | disposition home or self-care (01) ==
LOC: COL.ER 11:25
DX: M54.2 Cervicalgia (principal); E11.9 Type 2 diabetes mellitus without complications; I10 Essential (primary) hypertension; Z79.51 Long term (current) use of inhaled steroids; Z79.02 Long term (current) use of antithrombotics/antiplatelets

== ENCOUNTER → 2019-03-16 | Outpatient (CLI) | payer MEDICARE, BC ==
[~2019-03-16] MED LIST changes: +LIDODERM 5% PATC1 EA TP
== END ==
LOC: COL.RAD 12:02
DX: M47.816 Spondylosis without myelopathy or radiculopathy, lumbar region (principal); M41.86 Other forms of scoliosis, lumbar region; M48.061 Spinal stenosis, lumbar region without neurogenic claudication

== ENCOUNTER 2019-05-01 13:34 | Emergency (ER) | payer MEDICARE, BC ==
[~2019-05-01] VITALS: Ht 170.2 cm; Wt 90.9 kg
[2019-05-01 13:51] VITALS: BP 150/66; TEMP 98.4
[2019-05-01 14:50] LABS: COLLECTION METHOD CLEAN CATCH
[2019-05-01 14:55] LABS: BASO % 0.4 % (0.0-2.0); EOS # 0.1 (0.0-0.7); EOS % 1.1 % (0-4.0); GRAN # 6.2 (1.4-6.5); GRAN % 76.7 % (42.2-75.2); HEMOGLOBIN 10.6 g/dl (12.5-16.0); LYMPH # 1.1 (1.2-3.4); LYMPH % 13.6 % (20.0-51.0); MEAN CELL VOLUME 100 fl (80.0-100.0); MEAN CORPUSCULAR HEMOGLOBIN 30 pg (27.0-31.0); MEAN CORPUSCULAR HGB CONC 30 g/dl (33.0-37.0); MONO # 0.6 (0.1-0.6); MONO % 7.8 % (1.7-9.3); PLATELET COUNT 243 K/mm3 (130-400); RED BLOOD COUNT 3.57 M/mm3 (4.10-5.30); REDCELL DISTRIBUTION WIDTH-CV 17.5 % (11.5-14.5)
[2019-05-01 14:56] LABS: HEMATOCRIT 35.8 % (37.0-47.0)
[2019-05-01 14:57] LABS: MUCOUS Present /lpf; PH 5 (5-8); SQUAMOUS EPITHELIAL 0-2 /hpf; URINE APPEARANCE Clear; URINE BACTERIA None Seen /hpf; URINE BILIRUBIN Negative (NEGATIVE); URINE BLOOD Negative (NEGATIVE); URINE COLOR Yellow; URINE GLUCOSE Negative (NEGATIVE); URINE KETONE Trace (NEGATIVE); URINE LEUKOCYTE ESTERASE Negative (NEGATIVE); URINE NITRATE Negative (NEGATIVE); URINE PROTEIN(semi-quant) Negative (NEGATIVE); URINE RBC 0-2 /hpf; URINE UROBILINOGEN Negative (NEGATIVE)
[2019-05-01 15:07] LABS: ALBUMIN 4.4 gm/dL (3.5-5.0); BILIRUBIN,TOTAL 0.3 mg/dL (0.0-1.0); C-REACTIVE PROTEIN 0.6 mg/dL (0.0-0.9); CALCIUM 9.5 mg/dL (8.4-10.2); CREATININE, serum 1.27 (0.52-1.25); POTASSIUM 4.6 mmol/L (3.4-5.0); TOTAL PROTEIN 7.8 gm/dL (6.4-8.2)
[2019-05-01] MEDS ORDERED: VITAMIN C500 MG PO (16:24)
[2019-05-01] MEDS ORDERED: MASON NATURAL2000 IU (16:24)
[2019-05-01] MEDS ORDERED: NEURONTIN100 MG/CAP PO (16:25)
[2019-05-01 18:15] LABS: INR 0.9 (0.8-3.0); PROTHROMBIN TIME 10.7 SECONDS (9.7-12.8)
[2019-05-01 18:18] LABS: PARTIAL THROMBOPLASTIN TIME 25.7 SECONDS (26.0-37.0)
[2019-05-01 19:26] VITALS: PULSE 78
== END 2019-05-01 19:26 | disposition short-term general hospital (02) ==
LOC: COL.ER 13:34
PROVIDERS: Emergency Medicine
DX: K55.1 Chronic vascular disorders of intestine (principal)
CPT/HCPCS: J1170; J2405; J7030; J7040; Q9967

== ENCOUNTER 2019-05-26 16:31 | Inpatient (IN) | payer MEDICARE, BC ==
[~2019-05-26] VITALS: Ht 170.2 cm; Wt 85.8 kg
[~2019-05-26 16:31] MED LIST changes: +MASON NATURAL2000 IU PO; +NEURONTIN100 MG/CAP PO; +VITAMIN C500 MG PO
[2019-05-26 17:50] LABS: MEAN CELL VOLUME 109 fl (80.0-100.0); MEAN CORPUSCULAR HGB CONC 29 g/dl (33.0-37.0); MEAN PLATELET VOLUME 9.5 fl (7.4-10.4); PLATELET COUNT 336 K/mm3 (130-400); RED BLOOD COUNT 1.94 M/mm3 (4.10-5.30); REDCELL DISTRIBUTION WIDTH-CV 21.6 % (11.5-14.5)
[2019-05-26 17:55] LABS: HEMATOCRIT 21.2 % (37.0-47.0); HEMOGLOBIN 6.2 g/dl (12.5-16.0); MEAN CORPUSCULAR HEMOGLOBIN 32 pg (27.0-31.0)
[2019-05-26 18:02] LABS: ALANINE AMINOTRANSFERASE 12 U/L (9-52); ALBUMIN 3.7 gm/dL (3.5-5.0); ALKALINE PHOSPHATASE 97 U/L (50-136); ANION GAP 8 mmol/L (7-16); AST,SGOT 20 U/L (15-37); BILIRUBIN,TOTAL 0.2 mg/dL (0.0-1.0); BLOOD UREA NITROGEN 64 mg/dL (7-17); CALCIUM 9.2 mg/dL (8.4-10.2); CARBON DIOXIDE 22 mmol/L (22-30); CHLORIDE 110 mmol/L (98-107); CREATININE, serum 1.34 (0.52-1.25); GLUCOSE 145 mg/dL (74-106); LIPASE 70 U/L (23-300); POTASSIUM 4.3 mmol/L (3.4-5.0); SODIUM 140 mmol/L (137-145); TOTAL PROTEIN 6.5 gm/dL (6.4-8.2)
[2019-05-26 18:14] LABS: TROPONIN-I < 0.012 ng/mL (0.000-0.035)
[2019-05-26 18:19] LABS: BAND 4 % (0-10); EOSINOPHIL 2 % (0-4); LYMPHOCYTE 15 % (20.0-51.0); METAMYELOCYTE 1 % (0-0); MYELOCYTE 2 % (0-0); NEUTROPHILS 74 % (42.0-75.2); NUCLEATED RED BLOOD CELL 1 (0-6); PLATELET ESTIMATE NORMAL (NORMAL)
[2019-05-26 18:20] LABS: ANISOCYTOSIS 3+
[2019-05-26 18:21] LABS: POIKILOCYTOSIS 1+
[2019-05-26] MEDS ORDERED: TYLENOL SU650 MG/SUP RC (19:18)
[2019-05-26] MEDS ORDERED: ASPIRIN 81M81 MG/TA2 PO (19:25)
[2019-05-26] MEDS ORDERED: GENTLE LAXATIVE10 MG RC (19:26)
[2019-05-26] MEDS ORDERED: FERROUS GL325 MG/TAB (19:28)
[2019-05-26] MEDS ORDERED: LEADER CLE17 GM/Dose PO (19:32)
[2019-05-26] MEDS ORDERED: CEPHALEXIN500 M1 PO (19:35)
[2019-05-26] MEDS ORDERED: MYLANTA 150 ML150 M1 PO (19:36)
[2019-05-26] MEDS ORDERED: REFRESH TEARS 330 ML OP (19:38)
[2019-05-26] MEDS ORDERED: ROXICODONE 55 MG/TAB PO (19:39)
[2019-05-26] MEDS ORDERED: TYLENOL 325MG325 MG PO ×3 (19:42→19:43)
[2019-05-26] MEDS ORDERED: VOLTAREN GEL 1%1 TU TP (19:45)
[2019-05-26 21:12] LABS: IRON,SERUM 82 ug/dL (35-150)
[2019-05-26 21:21] LABS: TOTAL IRON BINDING CAPACITY 381 ug/dL (265-497)
[2019-05-26 21:40] VITALS: BP 135/35; PULSE 78; TEMP 97.7
[2019-05-26 22:23] LABS: PROTHROMBIN TIME 12.1 SECONDS (9.7-12.8)
[2019-05-26 22:52] VITALS: BP 171/55; PULSE 85; TEMP 97.3
[2019-05-26 23:12] VITALS: BP 114/41; PULSE 75; TEMP 98.2
[2019-05-26 23:42] VITALS: BP 131/42; PULSE 77
[2019-05-26] MEDS ORDERED: CYMBALTA 60MG60 MG PO (23:55)
[2019-05-26] MEDS ORDERED: NEURONTIN100 MG/CAP PO (23:57)
[2019-05-27] VITALS (15 sets, daily range): BP systolic 122–158; BP diastolic 41–61; PULSE 71–89; TEMP 97.4–98.3
[2019-05-27] MEDS ORDERED: NEURONTIN100 MG/CAP PO (00:16)
[2019-05-27 02:24] LABS: COLLECTION METHOD CLEAN CATCH
[2019-05-27 02:30] LABS: PH 5 (5-8); SQUAMOUS EPITHELIAL None Seen /hpf; URINE APPEARANCE Clear; URINE BACTERIA None Seen /hpf; URINE BILIRUBIN Negative (NEGATIVE); URINE BLOOD Negative (NEGATIVE); URINE COLOR Straw; URINE GLUCOSE Negative (NEGATIVE); URINE KETONE Negative (NEGATIVE); URINE LEUKOCYTE ESTERASE Negative (NEGATIVE); URINE NITRATE Negative (NEGATIVE); URINE PROTEIN(semi-quant) Negative (NEGATIVE); URINE RBC None Seen /hpf; URINE UROBILINOGEN Negative (NEGATIVE)
[2019-05-27 03:50] LABS: MEAN CORPUSCULAR HGB CONC 31 g/dl (33.0-37.0); MEAN PLATELET VOLUME 9.6 fl (7.4-10.4); PLATELET COUNT 247 K/mm3 (130-400); REDCELL DISTRIBUTION WIDTH-CV 20.2 % (11.5-14.5)
[2019-05-27 03:52] LABS: HEMATOCRIT 24.8 % (37.0-47.0); HEMOGLOBIN 7.7 g/dl (12.5-16.0); MEAN CELL VOLUME 103 fl (80.0-100.0); MEAN CORPUSCULAR HEMOGLOBIN 32 pg (27.0-31.0)
[2019-05-27 03:58] LABS: CALCIUM 8.3 mg/dL (8.4-10.2); POTASSIUM 4.1 mmol/L (3.4-5.0)
[2019-05-27 05:09] LABS: ANISOCYTOSIS 3+; BAND 11 % (0-10); LYMPHOCYTE 4 % (20.0-51.0); METAMYELOCYTE 3 % (0-0); NEUTROPHILS 78 % (42.0-75.2); NUCLEATED RED BLOOD CELL 2 (0-6); PLATELET ESTIMATE NORMAL (NORMAL)
--- NOTE | 2019-05-27 05:57 | NUR ---
0515: Patient put call light on requesting the nurse stating I don't feel good". Upon entering room patient holding chest and states "It just really hurts, It woke me up". Pointing substernal and states it goes across her left shoulder and left jaw to her left ear. No c/o SOA. BP 147/43, HR 81, O2 96% RA Rating Chest pain @ a 6 on 0-10 pain scale. No c/o nausea. Natali GUEVARA notified. See chart for orders received. 0534: Nitro 0.4mg sublingual tab given, 0538: 12 lead EKG obtained. 0536 Morphine 4mg IVP given as ordered. 0540: BP 132/43, HR 76, RR 18, Sp02 96% RA No c/o pain. C/O mild nausea. 0553: BP 118/44, HR 81 RR 18 Sp02 94% RA No C/O chest pain or nausea at this time. troponin labs drawn at this time. Natali GUEVARA updated on patient status. No new orders at this time.
[2019-05-27 09:54] LABS: HEMATOCRIT 26.7 % (37.0-47.0); HEMOGLOBIN 8.2 g/dl (12.5-16.0)
--- NOTE | 2019-05-27 10:40 | NUR ---
SW attended clinical rounds. The patient is to have an EGD today, 05/27. Depending on the results, the patient may transfer to [facility]. SW then followed up with the patient and the patient's daughters: Janeen Styles (ph#[phone]) and Ronen Botello (ph#[phone]). The patient has been residing at [facility] for a SNF stay. Prior, she was living with her daughter, Janeen, in [place]. The patient's PCP is Dr. Kelly Moscoso. The patient has a DPOA-HC in EMR. The patient and her daughter's report that this DPOA-HC is not hers. SW notified Isha with Medical Records. The patient and her daughters report that the patient's DPOA-HC is her grandson, Lee Olguin (ph#[phone]). SW encouraged them to bring a copy to the hospital. The patient is to tentatively tranfer to [facility]. The patient reports that if she does not transfer to [facility] and if a SNF stay is not recommended, then she would want to return home with her daughter. PAMELA contacted and updated Shelia at [facility]. SW to continue to follow.
--- NOTE | 2019-05-27 10:44 | NUR ---
Initial visit; Patient and family thanked Rotary Dump Operator for looking in on Shelbi and offering God's blessings and to keep her in Rotary Dump Operator's prayers.
--- NOTE | 2019-05-27 10:44 | NUR ---
Assessment complete. Pt laying comfortably in bed. Alert and oriented. Denies pain, SOB, or any discomfort. Medication given without issue. Needs met. No complaints at this time. Call light within reach.
--- NOTE | 2019-05-27 12:10 | NUR ---
Dianne from [facility] picked up pt via svetlana for procedure.
[2019-05-27 16:25] LABS: HEMATOCRIT 24.7 % (37.0-47.0); HEMOGLOBIN 7.6 g/dl (12.5-16.0)
--- NOTE | 2019-05-27 17:47 | NUR ---
Pt resting in bed watching TV. Denies any pain or discomfort. Able to ambulate to restroom independently. Dressing to rt hematoma in lower abdomen quadrant changed. Washed with NS, air dried, applied xerform and telfa. Wound bed pink. Edges are not approximated. No drainage noted. Pt c/o tenderness upon touch. Needs met.
[2019-05-27 22:04] LABS: HEMATOCRIT 25.4 % (37.0-47.0); HEMOGLOBIN 7.7 g/dl (12.5-16.0)
--- NOTE | 2019-05-28 02:54 | NUR ---
05/27/191899: report received from Day shift RN patient to be transfer to [facility] [address] Delgado for further evaluation of right grion hematoma and associated anemia with need with dual antiplatlet therapy. Currently waiting on ambulance service. Patient and family aware of transfer and that transfer time is unknown d/t EMS availability. Will keep family Updated. 2031: phone report given to Loretta BARRON @ [facility] @ # [phone]. Will Call back When Patient is enroute.
[2019-05-28 04:39] VITALS: BP 128/47; PULSE 67; TEMP 97.8
[2019-05-28 05:20] LABS: MEAN CELL VOLUME 106 fl (80.0-100.0); MEAN CORPUSCULAR HGB CONC 30 g/dl (33.0-37.0); MEAN PLATELET VOLUME 9.4 fl (7.4-10.4); PLATELET COUNT 232 K/mm3 (130-400); RED BLOOD COUNT 2.25 M/mm3 (4.10-5.30); REDCELL DISTRIBUTION WIDTH-CV 21.2 % (11.5-14.5)
[2019-05-28 05:27] LABS: HEMATOCRIT 23.9 % (37.0-47.0); HEMOGLOBIN 7.1 g/dl (12.5-16.0); MEAN CORPUSCULAR HEMOGLOBIN 32 pg (27.0-31.0)
[2019-05-28 05:34] LABS: CALCIUM 8.5 mg/dL (8.4-10.2); CREATININE, serum 0.94 (0.52-1.25); POTASSIUM 4.5 mmol/L (3.4-5.0)
[2019-05-28 05:51] LABS: ANISOCYTOSIS 3+; BAND 10 % (0-10); EOSINOPHIL 1 % (0-4); LYMPHOCYTE 12 % (20.0-51.0); METAMYELOCYTE 2 % (0-0); NEUTROPHILS 62 % (42.0-75.2); PLATELET ESTIMATE NORMAL (NORMAL)
[2019-05-28 05:53] LABS: OVALOCYTES 1+
[2019-05-28 05:54] LABS: POLYCHROMASIA 1+
--- NOTE | 2019-05-28 07:36 | NUR ---
0700: [facility] in hospital for transfer to [facility] Room 4510 #2. Verbal report and review or recent telemetry, vital signs, labs, and medications reviewed with poke in. No questions or concerns after report. Call to daughters as requested to inform of transfer. [facility] Triage notified that patient had transfered and that ETA was approx 2 hours.
== END 2019-05-28 07:40 | disposition short-term general hospital (02) | DRG 605 ==
LOC: COL.ER 16:31 → MEDICAL 20:34
PROVIDERS: Emergency Medicine; Internal Medicine Gastroenterology; Nurse Practitioner Family
PROC: 0DJ08ZZ Inspection of Upper Intestinal Tract, Via Natural or Artificial Opening Endoscopic (ICD-10-PCS; principal; 2019-05-27 12:00)
DX: S30.1XXA Contusion of abdominal wall, initial encounter (principal); K92.2 Gastrointestinal hemorrhage, unspecified; N17.9 Acute kidney failure, unspecified; K55.1 Chronic vascular disorders of intestine; D50.0 Iron deficiency anemia secondary to blood loss (chronic); I10 Essential (primary) hypertension; E11.40 Type 2 diabetes mellitus with diabetic neuropathy, unspecified; E11.51 Type 2 diabetes mellitus with diabetic peripheral angiopathy without gangrene; E11.22 Type 2 diabetes mellitus with diabetic chronic kidney disease; N18.9 Chronic kidney disease, unspecified; E03.9 Hypothyroidism, unspecified; D63.1 Anemia in chronic kidney disease; G20 Parkinson's disease; K31.7 Polyp of stomach and duodenum; R13.10 Dysphagia, unspecified; G47.33 Obstructive sleep apnea (adult) (pediatric); Y83.9 Surgical procedure, unspecified as the cause of abnormal reaction of the patient, or of later complication, without mention of misadventure at the time of the procedure; K21.9 Gastro-esophageal reflux disease without esophagitis; F41.9 Anxiety disorder, unspecified; F32.9 Major depressive disorder, single episode, unspecified; F02.80 Dementia in other diseases classified elsewhere, unspecified severity, without behavioral disturbance, psychotic disturbance, mood disturbance, and anxiety; D72.829 Elevated white blood cell count, unspecified; K59.00 Constipation, unspecified; R07.9 Chest pain, unspecified; Z79.82 Long term (current) use of aspirin; Z79.02 Long term (current) use of antithrombotics/antiplatelets; Z90.710 Acquired absence of both cervix and uterus; Z86.711 Personal history of pulmonary embolism; Z86.718 Personal history of other venous thrombosis and embolism; Z87.891 Personal history of nicotine dependence; Z86.73 Personal history of transient ischemic attack (TIA), and cerebral infarction without residual deficits; Z88.2 Allergy status to sulfonamides
CPT/HCPCS: 99223-AI; C9113; J2270; J2704; J7030; P9016; Q9967

== ENCOUNTER 2019-06-28 09:07 | Emergency (ER) | payer MEDICARE, BC ==
[~2019-06-28] VITALS: Ht 170.2 cm; Wt 85.9 kg
[~2019-06-28 09:07] MED LIST changes: +FERROUS GL325 MG/TAB; +GENTLE LAXATIVE10 MG RC; +LEADER CLE17 GM/Dose PO; +MYLANTA 150 ML150 M1 PO; +REFRESH TEARS 330 ML OP; +ROXICODONE 55 MG/TAB PO; +TYLENOL SU650 MG/SUP RC; +VOLTAREN GEL 1%1 TU TP
[2019-06-28 09:45] VITALS: BP 129/60; TEMP 97
[2019-06-28 11:59] LABS: BASO % 0.3 % (0.0-2.0); EOS # 0.1 (0.0-0.7); EOS % 1.2 % (0-4.0); LYMPH # 1.2 (1.2-3.4); MEAN CELL VOLUME 104 fl (80.0-100.0); MEAN CORPUSCULAR HGB CONC 30 g/dl (33.0-37.0); MEAN PLATELET VOLUME 9.7 fl (7.4-10.4); MONO # 0.5 (0.1-0.6); MONO % 9.2 % (1.7-9.3); PLATELET COUNT 227 K/mm3 (130-400); RED BLOOD COUNT 3.09 M/mm3 (4.10-5.30); REDCELL DISTRIBUTION WIDTH-CV 15.2 % (11.5-14.5)
[2019-06-28 12:02] LABS: HEMATOCRIT 32.1 % (37.0-47.0); HEMOGLOBIN 9.5 g/dl (12.5-16.0); MEAN CORPUSCULAR HEMOGLOBIN 31 pg (27.0-31.0)
[2019-06-28 12:16] LABS: PROTHROMBIN TIME 11.1 SECONDS (9.7-12.8)
[2019-06-28 12:17] LABS: ALBUMIN 3.9 gm/dL (3.5-5.0); BILIRUBIN,TOTAL 0.3 mg/dL (0.0-1.0); C-REACTIVE PROTEIN 0.9 mg/dL (0.0-0.9); CREATININE, serum 0.96 (0.52-1.25); POTASSIUM 4.1 mmol/L (3.4-5.0); TOTAL PROTEIN 6.9 gm/dL (6.4-8.2); URIC ACID 8.6 mg/dL (2.5-6.2)
[2019-06-28 12:19] LABS: PARTIAL THROMBOPLASTIN TIME 18.5 SECONDS (26.0-37.0)
[2019-06-28 12:38] LABS: ERYTHROCYTE SEDIMENTATION RATE 28 mm/hr (0-30)
[2019-06-28] MEDS ORDERED: PERCOCET 325 MG1 TA2 PO (15:13)
[2019-06-28 16:05] VITALS: PULSE 74
== END 2019-06-28 16:05 | disposition home or self-care (01) ==
LOC: COL.ER 09:07
PROVIDERS: Emergency Medicine
DX: M25.561 Pain in right knee (principal); N18.9 Chronic kidney disease, unspecified; G20 Parkinson's disease; I82.409 Acute embolism and thrombosis of unspecified deep veins of unspecified lower extremity
CPT/HCPCS: J1100; J3010

== ENCOUNTER 2019-09-21 08:50 | Emergency (ER) | payer MEDICARE, BC ==
[~2019-09-21] VITALS: Ht 170.2 cm; Wt 86.4 kg
[~2019-09-21 08:50] MED LIST changes: +PERCOCET 325 MG1 TA2 PO
[2019-09-21 08:57] VITALS: TEMP 97.4
[2019-09-21 10:46] LABS: BASO % 0.4 % (0.0-2.0); EOS % 0.7 % (0-4.0); GRAN # 3.9 (1.4-6.5); GRAN % 70.7 % (42.2-75.2); HEMATOCRIT 38.9 % (37.0-47.0); HEMOGLOBIN 11.9 g/dl (12.5-16.0); LYMPH # 1.1 (1.2-3.4); LYMPH % 19.3 % (20.0-51.0); MEAN CELL VOLUME 98 fl (80.0-100.0); MEAN CORPUSCULAR HEMOGLOBIN 30 pg (27.0-31.0); MEAN CORPUSCULAR HGB CONC 31 g/dl (33.0-37.0); MEAN PLATELET VOLUME 9.6 fl (7.4-10.4); MONO # 0.4 (0.1-0.6); PLATELET COUNT 205 K/mm3 (130-400); RED BLOOD COUNT 3.98 M/mm3 (4.10-5.30); REDCELL DISTRIBUTION WIDTH-CV 14.3 % (11.5-14.5)
[2019-09-21 10:51] LABS: PROTHROMBIN TIME 11.6 SECONDS (9.7-12.8)
[2019-09-21 10:54] LABS: PARTIAL THROMBOPLASTIN TIME 27.1 SECONDS (26.0-37.0)
[2019-09-21 10:58] LABS: ALANINE AMINOTRANSFERASE 15 U/L (9-52); ALKALINE PHOSPHATASE 104 U/L (50-136); ANION GAP 8 mmol/L (7-16); AST,SGOT 18 U/L (15-37); BILIRUBIN,TOTAL 0.5 mg/dL (0.0-1.0); BLOOD UREA NITROGEN 17 mg/dL (7-17); CALCIUM 9.1 mg/dL (8.4-10.2); CARBON DIOXIDE 29 mmol/L (22-30); CHLORIDE 107 mmol/L (98-107); CREATININE, serum 0.82 (0.52-1.25); GLUCOSE 86 mg/dL (74-106); LIPASE 40 U/L (23-300); POTASSIUM 3.5 mmol/L (3.4-5.0); SODIUM 144 mmol/L (137-145); TOTAL PROTEIN 7.1 gm/dL (6.4-8.2)
[2019-09-21 11:12] LABS: TROPONIN-I < 0.012 ng/mL (0.000-0.035)
[2019-09-21 15:42] VITALS: BP 184/77; PULSE 67
[2019-09-21] MEDS ORDERED: NORCO 325 MG-51 TAB PO (15:54)
[2019-09-21] MEDS ORDERED: ATIVAN 0.50.5 MG/TAB PO (15:54)
== END 2019-09-21 16:50 | disposition short-term general hospital (02) ==
LOC: COL.ER 08:50
PROVIDERS: Emergency Medicine
DX: R09.1 Pleurisy (principal); G20 Parkinson's disease; Z79.02 Long term (current) use of antithrombotics/antiplatelets; Z79.82 Long term (current) use of aspirin
CPT/HCPCS: J2060; J3010; Q9967

== ENCOUNTER → 2020-04-20 | Outpatient (CLI) | payer MEDICARE, BC | LOC: COL.VAS 08:00 | DX: M79.662 Pain in left lower leg (principal); M79.89 Other specified soft tissue disorders ==

== ENCOUNTER 2020-05-01 12:44 | Outpatient (RCR) | payer MEDICARE, BC | END 2020-07-24 | disposition home or self-care (01) | LOC: MKS.ESL.PT | DX: R60.0 Localized edema (principal) ==

== ENCOUNTER 2020-08-07 10:08 | Emergency (ER) | payer MEDICARE, BC ==
[~2020-08-07] VITALS: Ht 170.2 cm; Wt 87.3 kg
[2020-08-07 10:12] VITALS: TEMP 98.1
[2020-08-07] MEDS ORDERED: AKTOB 5 ML5 ML OP (11:18)
[2020-08-07 11:37] VITALS: BP 175/73; PULSE 73
== END 2020-08-07 11:37 | disposition home or self-care (01) ==
LOC: COL.ER 10:08
DX: S05.01XA Injury of conjunctiva and corneal abrasion without foreign body, right eye, initial encounter (principal); H11.31 Conjunctival hemorrhage, right eye; G20 Parkinson's disease; I10 Essential (primary) hypertension; F03.90 Unspecified dementia, unspecified severity, without behavioral disturbance, psychotic disturbance, mood disturbance, and anxiety; F41.9 Anxiety disorder, unspecified; F32.9 Major depressive disorder, single episode, unspecified; Z88.2 Allergy status to sulfonamides; Z79.02 Long term (current) use of antithrombotics/antiplatelets; Z79.82 Long term (current) use of aspirin; X58.XXXA Exposure to other specified factors, initial encounter

== ENCOUNTER 2020-11-05 09:39 | Emergency (ER) | payer MEDICARE, BC ==
[~2020-11-05] VITALS: Ht 167.6 cm; Wt 87.7 kg
[~2020-11-05 09:39] MED LIST changes: +AKTOB 5 ML5 ML OP
[2020-11-05 10:03] VITALS: TEMP 97.4
[2020-11-05 10:33] LABS: BASO % 0.6 % (0.0-2.0); EOS # 0.1 (0.0-0.7); EOS % 1.2 % (0-4.0); GRAN # 3.4 (1.4-6.5); HEMOGLOBIN 12.5 g/dl (12.5-16.0); LYMPH % 20.5 % (20.0-51.0); MEAN CELL VOLUME 104 fl (80.0-100.0); MEAN CORPUSCULAR HEMOGLOBIN 33 pg (27.0-31.0); MEAN CORPUSCULAR HGB CONC 31 g/dl (33.0-37.0); MEAN PLATELET VOLUME 10.2 fl (7.4-10.4); MONO # 0.4 (0.1-0.6); MONO % 7.3 % (1.7-9.3); PLATELET COUNT 221 K/mm3 (130-400); RED BLOOD COUNT 3.83 M/mm3 (4.10-5.30); REDCELL DISTRIBUTION WIDTH-CV 14.1 % (11.5-14.5)
[2020-11-05 10:49] LABS: ALANINE AMINOTRANSFERASE 19 U/L (4-34); ALBUMIN 4.4 gm/dL (3.5-5.0); ALKALINE PHOSPHATASE 88 U/L (50-136); ANION GAP 7 mmol/L (7-16); AST,SGOT 21 U/L (15-37); BILIRUBIN,TOTAL 0.2 mg/dL (0.0-1.0); BLOOD UREA NITROGEN 46 mg/dL (7-17); CALCIUM 10.2 mg/dL (8.4-10.2); CARBON DIOXIDE 33 mmol/L (22-30); CHLORIDE 102 mmol/L (98-107); CREATININE, serum 1.12 (0.52-1.25); GLUCOSE 133 mg/dL (74-106); LIPASE 78 U/L (23-300); POTASSIUM 4.6 mmol/L (3.4-5.0); SODIUM 142 mmol/L (137-145); TOTAL PROTEIN 8.1 gm/dL (6.4-8.2)
[2020-11-05 11:02] LABS: TROPONIN-I < 0.012 ng/mL (0.000-0.035)
[2020-11-05 11:57] VITALS: BP 163/72; PULSE 70
== END 2020-11-05 11:58 | disposition home or self-care (01) ==
LOC: COL.ER 09:39
PROVIDERS: Emergency Medicine
DX: R07.9 Chest pain, unspecified (principal); R10.13 Epigastric pain; Z88.2 Allergy status to sulfonamides; Z87.891 Personal history of nicotine dependence; Z79.02 Long term (current) use of antithrombotics/antiplatelets; Z79.82 Long term (current) use of aspirin
CPT/HCPCS: C9113

== ENCOUNTER 2021-02-20 15:00 | Outpatient (RCR) | payer MEDICARE, BC | END 2021-04-16 | disposition home or self-care (01) | LOC: MKS.ESL.PT | DX: G20 Parkinson's disease (principal); G62.9 Polyneuropathy, unspecified ==

== ENCOUNTER 2021-09-01 11:31 | Inpatient (IN) | payer MEDICARE, BC ==
[~2021-09-01] VITALS: Ht 167.6 cm; Wt 96.7 kg
[2021-09-01 12:01] LABS: HEMATOCRIT 39.6 % (37.0-47.0); HEMOGLOBIN 12.5 g/dl (12.5-16.0); MEAN CELL VOLUME 103 fl (80.0-100.0); MEAN CORPUSCULAR HEMOGLOBIN 33 pg (27-31); MEAN CORPUSCULAR HGB CONC 32 g/dl (33.0-37.0); MEAN PLATELET VOLUME 10.8 fl (7.4-10.4); PLATELET COUNT 269 K/mm3 (130-400); RED BLOOD COUNT 3.85 M/mm3 (4.10-5.30); REDCELL DISTRIBUTION WIDTH-CV 13.9 % (11.5-14.5)
[2021-09-01 12:10] LABS: ALBUMIN 3.1 gm/dL (3.4-4.8); BILIRUBIN,TOTAL 0.8 mg/dL (0.2-1.2); CALCIUM 9.2 mg/dL (8.4-10.2); CREATININE, serum 2.49 mg/dL (0.57-1.11); POTASSIUM 4.2 mmol/L (3.5-4.5); TOTAL PROTEIN 7.3 gm/dL (6.2-8.1)
[2021-09-01 12:17] LABS: INR 2.2 (0.8-3.0); PROTHROMBIN TIME 24.4 SECONDS (9.7-12.8)
[2021-09-01 12:19] LABS: PARTIAL THROMBOPLASTIN TIME 31.4 SECONDS (26.0-37.0); TROPONIN-I 0.314 ng/mL (0.00-0.033)
[2021-09-01 13:08] LABS: BAND 2 % (0-10); LYMPHOCYTE 8 % (20.0-51.0); MYELOCYTE 1 % (0-0); NEUTROPHILS 81 % (42.0-75.2)
[2021-09-01 13:09] LABS: HYPOCHROMIA 2+; PLATELET ESTIMATE NORMAL (NORMAL)
[2021-09-01 16:52] VITALS: BP 110/58; PULSE 60; TEMP 97.5
--- NOTE | 2021-09-01 17:06 | NUR ---
PT ADMITTED TO UNIT. ADMISSION INTAKE AND ASSESSMENT COMPLETED. UNABLE TO OBTAIN MED REC AT THIS TIME DUE TO CONFUSION. BED ALARMS IN PLACE, ON BABY MONITOR. PT PULLING AT OXYGEN MULTIPLE TIMES. DENIES ANY NEEDS. ORIENTED TO ROOM. WILL CONTINUE TO MONITOR.
[2021-09-01] MEDS ORDERED: NORVASC 5MG5 MG/TAB PO (17:20)
[2021-09-01] MEDS ORDERED: ZYLOPRIM 100MG100 MG PO (17:20)
[2021-09-01] MEDS ORDERED: BUMEX 1MG TA1 MG/TA1 PO (17:21)
[2021-09-01] MEDS ORDERED: PARCOPA 25/101 UDTAB PO (17:22)
[2021-09-01] MEDS ORDERED: CYMBALTA 20MG20 MG PO (17:22)
[2021-09-01] MEDS ORDERED: ELIQUIS 2.5 PO (17:23)
[2021-09-01] MEDS ORDERED: FERROUS GL325 MG/TAB PO (17:24)
[2021-09-01] MEDS ORDERED: PROTONIX 40MG T40 MG PO (17:25)
[2021-09-01] MEDS ORDERED: NEURONTIN100 MG/CAP PO (17:25)
[2021-09-01] MEDS ORDERED: VTAMINC250TA PO (17:26)
[2021-09-01] MEDS ORDERED: MASON NATURAL2000 IU PO (17:27)
[2021-09-01] MEDS ORDERED: COZAAR 50MG50 MG/TAB PO (17:27)
[2021-09-01] MEDS ORDERED: NAMENDA XR 28MG PO (17:28)
[2021-09-01 17:29] LABS: ARTERIAL BLD GAS O2 SATURATION 94.5 % (92-100); ARTERIAL BLD GAS TCO2 CT 17.3; ARTERIAL BLOOD GAS BASE EXCESS -6.7 (-2-2); ARTERIAL BLOOD GAS HCO3 16.5 meq/L (22-26); ARTERIAL BLOOD GAS PCO2 26.7 mmHg (35-45); ARTERIAL BLOOD GAS PO2 78.6 mmHg (80-100); ARTERIAL BLOOD GAS pH 7.41 (7.35-7.45)
[2021-09-01] MEDS ORDERED: SENNA-LAX8.6 MG PO (17:29)
[2021-09-01] MEDS ORDERED: REQUIP2 MG PO (17:29)
[2021-09-01] MEDS ORDERED: AZILECT1 MG PO (17:32)
[2021-09-01] MEDS ORDERED: COMBIGAN 0.2%-0.5 ML OS (17:33)
--- NOTE | 2021-09-01 17:38 | NUR ---
HOME MEDICATIONS PLACED IN BIN IN MEDICATION ROOM. UNABLE TO CONTACT PHARMACY AT THIS TIME. WILL CALL TOMORROW MORNING.
[2021-09-01 20:07] VITALS: BP 116/52; PULSE 67; TEMP 97.7
[2021-09-01 23:35] VITALS: BP 111/50; PULSE 66; TEMP 97.7
[2021-09-02 04:37] VITALS: PULSE 61; TEMP 97.5
[2021-09-02 04:41] VITALS: BP 105/49
[2021-09-02 08:13] LABS: ALBUMIN 2.4 gm/dL (3.4-4.8); BASO % 0.2 % (0.0-2.0); BILIRUBIN,TOTAL 0.4 mg/dL (0.2-1.2); C-REACTIVE PROTEIN 20.87 mg/dL (0.00-0.50); CALCIUM 8.5 mg/dL (8.4-10.2); CHOLESTEROL RISK RATIO 5.6; CREATININE, serum 2.48 mg/dL (0.57-1.11); GRAN # 9.1 K/mm3 (1.4-6.5); GRAN % 87.9 % (42.2-75.2); HEMOGLOBIN 10.7 g/dl (12.5-16.0); LYMPH # 0.6 K/mm3 (1.2-3.4); MEAN CELL VOLUME 101 fl (80.0-100.0); MEAN CORPUSCULAR HEMOGLOBIN 33 pg (27-31); MEAN CORPUSCULAR HGB CONC 32 g/dl (33.0-37.0); MEAN PLATELET VOLUME 10.8 fl (7.4-10.4); MONO # 0.5 K/mm3 (0.1-0.6); MONO % 4.9 % (1.7-9.3); PLATELET COUNT 235 K/mm3 (130-400); POTASSIUM 3.8 mmol/L (3.5-4.5); RED BLOOD COUNT 3.28 M/mm3 (4.10-5.30); REDCELL DISTRIBUTION WIDTH-CV 13.8 % (11.5-14.5)
[2021-09-02 08:15] LABS: TROPONIN-I 0.24 ng/mL (0.00-0.033)
[2021-09-02 08:17] LABS: HEMATOCRIT 33.1 % (37.0-47.0)
[2021-09-02 08:23] VITALS: BP 125/53; PULSE 65; TEMP 97.2
--- NOTE | 2021-09-02 10:56 | NUR ---
PT RESTING IN BED. MORNING MEDICATIONS GIVEN. SHIFT ASSESSMENT COMPLETED. PT CURRENTLY MAXED OUT ON AIRVO AT 60L/95%. PT APPEARS VERY DROWSY AND HAS DIFFICULTY LIFTING EXTREMITIES. REPORT PAIN IN LLE, SWELLING NOTED, SCD TAKEN OFF OF THAT EXTREMITY AT THIS TIME. DR. DIAMOND NOTIFIED OF PT STATUS. THIS RN SPOKE VIA PHONE WITH HUGO AND NETO BLUE. WILL CONTINUE TO MONITOR.
[2021-09-02 12:56] VITALS: BP 124/46; PULSE 66; TEMP 97.4
[2021-09-02 15:44] LABS: ARTERIAL BLD GAS TCO2 CT 22.6; ARTERIAL BLOOD GAS BASE EXCESS -2.1 (-2-2); ARTERIAL BLOOD GAS HCO3 21.6 meq/L (22-26); ARTERIAL BLOOD GAS PCO2 33.5 mmHg (35-45); ARTERIAL BLOOD GAS PO2 53.5 mmHg (80-100); ARTERIAL BLOOD GAS pH 7.43 (7.35-7.45)
[2021-09-02 18:03] VITALS: BP 125/50; PULSE 70; TEMP 94
[2021-09-03] VITALS (7 sets, daily range): BP systolic 124–1132; BP diastolic 48–68; PULSE 61–73; TEMP 96.1–97.6
[2021-09-03 05:28] LABS: ARTERIAL BLD GAS O2 SATURATION 83.5 % (92-100); ARTERIAL BLD GAS TCO2 CT 23.4; ARTERIAL BLOOD GAS BASE EXCESS -1.2 (-2-2); ARTERIAL BLOOD GAS HCO3 22.3 meq/L (22-26); ARTERIAL BLOOD GAS PCO2 33.5 mmHg (35-45); ARTERIAL BLOOD GAS pH 7.44 (7.35-7.45)
[2021-09-03 05:29] LABS: ARTERIAL BLOOD GAS PO2 48.1 mmHg (80-100)
[2021-09-03 07:10] LABS: HEMOGLOBIN 12.1 g/dl (12.5-16.0); MEAN CELL VOLUME 97 fl (80.0-100.0); MEAN CORPUSCULAR HEMOGLOBIN 33 pg (27-31); MEAN CORPUSCULAR HGB CONC 34 g/dl (33.0-37.0); MEAN PLATELET VOLUME 10.6 fl (7.4-10.4); PLATELET COUNT 301 K/mm3 (130-400); REDCELL DISTRIBUTION WIDTH-CV 13.7 % (11.5-14.5)
[2021-09-03 07:15] LABS: HEMATOCRIT 35.7 % (37.0-47.0)
[2021-09-03 08:02] LABS: PATHOLOGY DIFF REVIEW OK
[2021-09-03 08:02] LABS: CALCIUM 8.6 mg/dL (8.4-10.2); CREATININE, serum 2.11 mg/dL (0.57-1.11); POTASSIUM 3.8 mmol/L (3.5-4.5)
--- NOTE | 2021-09-03 09:58 | NUR ---
PT RESTING IN BED. MORNING MEDICATIONS GIVEN. SHIFT ASSESSMENT COMPLETED. AIRVO ON 60L/95% WITH OXYMASK WELL. FLUIDS ON HOLD. PT DENIES PAIN. FATIGUED. SPOKE EXTENSIVELY WITH SON ON PHONE, TRANSFERRED SON TO PT'S PHONE. BABY MONITOR IN PLACE, BED ALARMS IN PLACE. WILL CONTINUE TO MONITOR.
--- NOTE | 2021-09-03 13:17 | NUR ---
REPORT CALLED TO ANDERSON POZO.
--- NOTE | 2021-09-03 13:29 | NUR ---
Social Work student called Naz, the social worker palliative care at [facility], to see if there was a DPOA-HC on file for the patient. Naz told SW that patient did not actively see her previously listed PCP, Dr. Meier, any longer, and that now she may be seeing Dr. Mueller as her PCP. Naz did state that she did have a DNR on file with their office though.
--- NOTE | 2021-09-03 13:52 | NUR ---
WAS INFORMED BY TIME STUDY OBSERVER THAT PT IS GOING TO ATTEMPT BIPAP WHILE ON THE FLOOR.
--- NOTE | 2021-09-03 14:12 | NUR ---
PLACED PT ON BIPAP 06/27 90% RR 15 SPO2 95%.
--- NOTE | 2021-09-03 15:10 | NUR ---
ENTERED PT ROOM TO FIND HER PULLING AT BIPAP. PT STATES SHE "WANTS IT OFF BECAUSE SHE FEELS LIKE SHE CAN'T BREATH AND SHE TIRED OF FIGHTING." CONTACTED DR. BOLIVAR AND INSTRUCTED TO NOTIFY RT TO TAKE BIPAP OFF AND PLACE BACK ON AIRVO. ALSO CONTACTED SUSANNA ABOUT POSSIBLE PALLIATIVE CARE CONSULT. CONTINUING TO MONITOR.
--- NOTE | 2021-09-03 15:56 | NUR ---
Glaze Sprayer contacted Dr. Mueller's office and they do not have a copy of patient's Advance Directives. PAMELA contacted patient's grandson, Ga (ph#[phone]) to discuss discharge planning as he is listed as patient's DPOA-HC. Ga confirmed he is DPOA-HC and advised his mother, Ronen (ph#[phone]) can likely bring a copy by. Ga advised that patient lives in [place] and her daughter, Janeen lives with her. Patient sees Dr. Mueller for primary care and uses a walker for ambulation. Ga advised that patient is normally pretty independent with ADLS. Patient is currently on 60 liters of oxygen. PAMELA contacted patient's daughter, Ronen who dropped off a copy of patient's DPOA-HC that does designate her grandson, Ga. Discharge Plan: Pending at this time
--- NOTE | 2021-09-03 18:00 | NUR ---
PT CURRENTLY ON AIRVO, TOLERATING WELL AT THIS TIME. STILL VERY FATIGUED, BUT ANSWERING QUESTIONS APPROPRIATELY. WILL CONTINUE TO MONITOR.
--- NOTE | 2021-09-03 20:30 | NUR ---
Patient is resting in bed, alert and oriented, slurred speech. She complains about AIRVO and asks if she can remove it. Educated about O2 needs. Telemetry in place. AIRVO 60 /90. Pt is weak, refuses medications. Assessment completed. Monitoring via baby monitor.
--- NOTE | 2021-09-03 22:00 | NUR ---
Patient removed airvo, O2 levels drop to 50's. IT was explained the need for her O2. It was placed. Right now at 87%.
[2021-09-04 05:36] VITALS: BP 131/52; PULSE 70; TEMP 97.3
--- NOTE | 2021-09-04 06:23 | NUR ---
Patient has been relatively stable along the night. Continues with airvo at 60L. Her O2 sat goes from 87 to 91%. She removed the airvo once. Report will be given to day RN.
[2021-09-04 06:42] LABS: MEAN CELL VOLUME 97 fl (80.0-100.0); MEAN CORPUSCULAR HEMOGLOBIN 33 pg (27-31); MEAN CORPUSCULAR HGB CONC 34 g/dl (33.0-37.0); MEAN PLATELET VOLUME 10.6 fl (7.4-10.4); PLATELET COUNT 343 K/mm3 (130-400); RED BLOOD COUNT 3.68 M/mm3 (4.10-5.30); REDCELL DISTRIBUTION WIDTH-CV 13.6 % (11.5-14.5)
[2021-09-04 06:49] LABS: HEMATOCRIT 35.8 % (37.0-47.0)
[2021-09-04 06:51] LABS: ALBUMIN 2.5 gm/dL (3.4-4.8); CALCIUM 8.7 mg/dL (8.4-10.2); CREATININE, serum 1.68 mg/dL (0.57-1.11); MAGNESIUM 2.1 mg/dL (1.6-2.6); PHOSPHOROUS 3.4 mg/dL (2.3-4.7); POTASSIUM 3.8 mmol/L (3.5-4.5)
--- NOTE | 2021-09-04 07:16 | NUR ---
PT SLEEPING IN BED WITH AIRVO ON AT THIS TIME.
[2021-09-04 08:37] VITALS: BP 144/56; PULSE 72; TEMP 97.4
[2021-09-04 08:50] LABS: BAND 10 % (0-10); LYMPHOCYTE 3 % (20.0-51.0); NEUTROPHILS 83 % (42.0-75.2); PLATELET ESTIMATE NORMAL (NORMAL)
--- NOTE | 2021-09-04 10:05 | NUR ---
PT IS ALERT AND ORIENTED. BREATH SOUNDS ARE CLEAR TO AUSCULTATION. THE PATIENT KNOWS WHERE SHE IS AT, REQUESTED BREAKFAST TODAY AND ALSO STATES SHE WILL TAKE HER MEDICINE. O2 SATS ARE 96-98% ON AIRVO AT THIS TIME. PT DID REQUEST A BATH. WILL ATTEMPT TO GIVE PATIENT A BED BATH TODAY.
[2021-09-04 12:31] VITALS: BP 145/63; PULSE 72; TEMP 97.4
[2021-09-04 15:55] VITALS: BP 131/54; PULSE 71; TEMP 97.4
[2021-09-04 20:23] VITALS: BP 145/57; PULSE 76; TEMP 96.6
[2021-09-05] VITALS (7 sets, daily range): BP systolic 121–157; BP diastolic 49–97; PULSE 68–80; TEMP 97.3–98
[2021-09-05 06:22] LABS: MEAN CELL VOLUME 96 fl (80.0-100.0); MEAN CORPUSCULAR HEMOGLOBIN 32 pg (27-31); MEAN CORPUSCULAR HGB CONC 34 g/dl (33.0-37.0); MEAN PLATELET VOLUME 10.5 fl (7.4-10.4); PLATELET COUNT 355 K/mm3 (130-400); REDCELL DISTRIBUTION WIDTH-CV 13.5 % (11.5-14.5)
[2021-09-05 06:34] LABS: HEMATOCRIT 35.4 % (37.0-47.0)
[2021-09-05 06:59] LABS: ALBUMIN 2.4 gm/dL (3.4-4.8); CALCIUM 8.8 mg/dL (8.4-10.2); CREATININE, serum 1.56 mg/dL (0.57-1.11); PHOSPHOROUS 3.7 mg/dL (2.3-4.7); POTASSIUM 4.3 mmol/L (3.5-4.5)
[2021-09-05 07:56] LABS: BAND 6 % (0-10); LYMPHOCYTE 5 % (20.0-51.0); NEUTROPHILS 86 % (42.0-75.2)
[2021-09-05 07:57] LABS: PLATELET ESTIMATE NORMAL (NORMAL)
--- NOTE | 2021-09-05 19:43 | NUR ---
PT HAD UNEVENTFUL DAY. NO CONCERNS. CONTINUES TO DEEP BREATHE AND IMPROVE.
[2021-09-06 03:31] VITALS: BP 127/55; PULSE 66; TEMP 97.4
[2021-09-06 06:22] LABS: HEMOGLOBIN 11.6 g/dl (12.5-16.0); MEAN CELL VOLUME 96 fl (80.0-100.0); MEAN CORPUSCULAR HEMOGLOBIN 32 pg (27-31); MEAN CORPUSCULAR HGB CONC 34 g/dl (33.0-37.0); MEAN PLATELET VOLUME 10.3 fl (7.4-10.4); PLATELET COUNT 345 K/mm3 (130-400); RED BLOOD COUNT 3.58 M/mm3 (4.10-5.30); REDCELL DISTRIBUTION WIDTH-CV 13.7 % (11.5-14.5)
[2021-09-06 06:36] LABS: HEMATOCRIT 34.4 % (37.0-47.0)
[2021-09-06 06:38] LABS: ALBUMIN 2.3 gm/dL (3.4-4.8); CALCIUM 8.6 mg/dL (8.4-10.2); CREATININE, serum 1.54 mg/dL (0.57-1.11); PHOSPHOROUS 3.7 mg/dL (2.3-4.7); POTASSIUM 4.2 mmol/L (3.5-4.5)
[2021-09-06 08:19] LABS: BAND 8 % (0-10); LYMPHOCYTE 2 % (20.0-51.0); METAMYELOCYTE 5 % (0-0); NEUTROPHILS 84 % (42.0-75.2); PLATELET ESTIMATE NORMAL (NORMAL); TEAR DROP CELLS 1+
[2021-09-06 08:41] VITALS: BP 156/80; PULSE 79; TEMP 98.7
--- NOTE | 2021-09-06 12:00 | NUR ---
Contacted Ga who is her DPOHC for PICC consent. Voice mail message left with no return phone call.
[2021-09-06 12:45] VITALS: BP 126/55; PULSE 79
--- NOTE | 2021-09-06 16:33 | NUR ---
Metal Precision Machine Assembler collaborated with Hospitalist who advised patient's family would like to continue with treatment at this time and are not interested in comfort care. PAMELA discussed [facility] referral with Hospitalist. PAMELA then contacted patient's DPOA-HC, Ga to discuss discharge planning. PAMELA advised that we would be looking at [facility]. Ga stated he cannot talk at this current moment but will call PAMELA back as soon as he can to discuss this. PAMELA faxed clinicals to Braxton who advised he felt patient met criteria and will follow for any update to plan of care.
[2021-09-06 16:37] VITALS: BP 139/55; PULSE 88
[2021-09-06 17:59] LABS: ARTERIAL BLD GAS TCO2 CT 22.3; ARTERIAL BLOOD GAS BASE EXCESS -0.9 (-2-2); ARTERIAL BLOOD GAS HCO3 21.4 meq/L (22-26); ARTERIAL BLOOD GAS PCO2 28.9 mmHg (35-45); ARTERIAL BLOOD GAS PO2 58.8 mmHg (80-100); ARTERIAL BLOOD GAS pH 7.49 (7.35-7.45)
--- NOTE | 2021-09-06 19:24 | NUR ---
Patient continues to be maxed out on Airvo. At beginning of the shift, patient was very drowsy and was not able to open eyes for an extended amount of time. Patient repositioned and face washed with a warm washcloth, patient continued to be drowsy and did not participate in interaction. This RN felt it was unsafe to give her oral medications, Dr. To notified, medications placed on hold. IV medications ordered. As the shift continued patient became alert enough to take a drink and swallow with no difficulties. PO blood pressure medications given. Patient tolerated well. By the end of this shift, patient's mental status was changing from alert to drowsy quite frequently. Patient took off airvo, and desated into the 40's. Airvo placed back on patient, who recovered after an extended period of time. Respiratory contacted. All other VSS. Patient deemed fit for transfer to ICU. welder 2nd shift made aware.
[2021-09-06 20:30] VITALS: BP 129/54; PULSE 88; TEMP 97.5
[2021-09-06 23:35] VITALS: BP 136/55; PULSE 83
[2021-09-07 04:14] VITALS: BP 141/65; PULSE 65; TEMP 97.4
--- NOTE | 2021-09-07 05:51 | NUR ---
PT ATTEMPTED TO TAKE BIPAP OFF MULTIPLE TIMES OVERNIGHT. BIPAP SETTINGS UNCHANGED. (SEE RT ASSESMENT NOTE). PUREWICK IN PLACE. OUTPUT WNL. PT DISORIENTED AND INCOMPREHENSIBLE AT TIMES. MITS ON. ALL NEEDS MET THIS SHIFT. CALL LIGHT WHTIN REACH.
[2021-09-07 06:32] LABS: HEMOGLOBIN 11.4 g/dl (12.5-16.0); MEAN CELL VOLUME 100 fl (80.0-100.0); MEAN CORPUSCULAR HEMOGLOBIN 32 pg (27-31); MEAN CORPUSCULAR HGB CONC 32 g/dl (33.0-37.0); MEAN PLATELET VOLUME 10.7 fl (7.4-10.4); PLATELET COUNT 344 K/mm3 (130-400); RED BLOOD COUNT 3.57 M/mm3 (4.10-5.30); REDCELL DISTRIBUTION WIDTH-CV 13.9 % (11.5-14.5)
[2021-09-07 06:40] LABS: HEMATOCRIT 35.6 % (37.0-47.0)
[2021-09-07 06:46] LABS: ALBUMIN 2.3 gm/dL (3.4-4.8); CREATININE, serum 1.57 mg/dL (0.57-1.11); MAGNESIUM 2.2 mg/dL (1.6-2.6); PHOSPHOROUS 3.7 mg/dL (2.3-4.7)
[2021-09-07 07:28] VITALS: BP 131/98; BP 136/56; PULSE 86; TEMP 97.5
[2021-09-07 08:19] LABS: BAND 11 % (0-10); LYMPHOCYTE 5 % (20.0-51.0); NEUTROPHILS 81 % (42.0-75.2); NUCLEATED RED BLOOD CELL 3 (0-6); PLATELET ESTIMATE NORMAL (NORMAL)
--- NOTE | 2021-09-07 09:43 | NUR ---
PATIENT CURRENTLY ON AIRVO AT MAX SETTINGS 60L, 90-95%. PATIENT LOOKS OF EXTREME DISCOMFORT AND SEEMS RESTLESS. SPOKE TO ABOUT PATIENT'S COMFORT AND CONFUSION WITH PATIENT'S AND FAMILY REQUESTS FAR BIPAP. EXPLAINED TO THAT BIPAP IS A FORM OF NON-INVASIVE VENTILATOR AND HE AGREED AND REPLIED WITH FAMILY IS OKAY WITH BIPAP AND SEDATION, SO IF PRECEDEX IS NEEDED THAT CAN BE DONE AT OUR DISCRESSION. SPOKE TO RN TODAY ABOUT FAMILY'S UNDERSTANDING OF PATIENT'S CURRENT CONDITON AND ASKED RN TO INCLUDE THE INFORMATION OF BIPAP AND WHAT KIND OF SUPPORT IT IS GIVING TO PATIENT WHEN THE FAMILY CALLS FOR UPDATE. THIS RT DOES NOT WANT ANY MISUNDERSTANDING OF THE PATIENT'S CONDITION AND THE AMOUNT OF SUPPORT THAT PATIENT IS BEING PROVIDED.
[2021-09-07 11:18] VITALS: BP 138/60; PULSE 85; TEMP 97
--- NOTE | 2021-09-07 11:51 | NUR ---
Patient continues to be be maxed out on Airvo. Has been having periods of agitation followed by periods of lethargy. Scheduled IV medications given, PO medications not given, due to patient's inability to follow swallowing prompts. Dr. To notified. This RN was instructed to try and find a way to give patient her Parkinson's medications. Swallow evaluation to be completed by ST. Will follow recommendations. Patient is currently resting in bed. Respirations are even and unlabored. VSS. Call light in reach. Fall percautions in place. Heel protectors in place. Purewick in use.
--- NOTE | 2021-09-07 13:54 | NUR ---
Phone call placed to [facility]-, Ga, this afternoon with Jazmine SANTIAGO. Ga has spoken with Dr Vela this am and after talking with family, expresses to us that they will not be transferring Carly to [facility] but rather talking among family members about comfort care. They have not yet made a final decision, but will talk with Dr Vela again this afternoon/evening and reach a final decision. We will await that decision.
--- NOTE | 2021-09-07 14:33 | NUR ---
Bio Medical Technician and Cecille, Palliative Care RN contacted patient's grandson, Ga to discuss plan of care. Ga advised that they are leaning towards comfort care but will call Dr. Vela or Dr. To with a final decision.
[2021-09-07 15:49] VITALS: BP 107/38; PULSE 97; TEMP 97.6
[2021-09-07 19:53] VITALS: BP 133/57; PULSE 89; TEMP 97.5
--- NOTE | 2021-09-07 21:30 | NUR ---
Patient is lying in bed, alert butnot oriented. Pt removed her purewick. Hygiene provided. Repositioned. Unable to take oral medications, denies open her mouth which is very dry. Hydration with swabs provided. Telemetry in place, NSR. Airvo 60L 93%. Assessment completed, no other needs at this time. Baby monitor on.
[2021-09-07 23:22] VITALS: BP 127/56; PULSE 88; TEMP 97.9
[2021-09-08 04:08] VITALS: BP 119/72; PULSE 86; TEMP 97.5
--- NOTE | 2021-09-08 07:04 | NUR ---
Pt has been removing airvo. She has been monitored with baby monitor. Constantly was put back the airvo in place. Pt has had some BM green mucous. Hygiene provided. Pt removes the purewick. Discontinued. Continues with airvo 60L 90-93%. Report given to day RN.
[2021-09-08 07:28] LABS: HEMOGLOBIN 10.4 g/dl (12.5-16.0); MEAN CELL VOLUME 100 fl (80.0-100.0); MEAN CORPUSCULAR HEMOGLOBIN 32 pg (27-31); MEAN CORPUSCULAR HGB CONC 32 g/dl (33.0-37.0); MEAN PLATELET VOLUME 11.2 fl (7.4-10.4); PLATELET COUNT 406 K/mm3 (130-400); RED BLOOD COUNT 3.22 M/mm3 (4.10-5.30)
[2021-09-08 07:36] LABS: HEMATOCRIT 32.3 % (37.0-47.0)
[2021-09-08 07:43] LABS: ALBUMIN 2.4 gm/dL (3.4-4.8); C-REACTIVE PROTEIN 17.77 mg/dL (0.00-0.50); CALCIUM 8.5 mg/dL (8.4-10.2); CREATININE, serum 1.58 mg/dL (0.57-1.11); MAGNESIUM 2.2 mg/dL (1.6-2.6); PHOSPHOROUS 3.3 mg/dL (2.3-4.7); POTASSIUM 4.3 mmol/L (3.5-4.5)
[2021-09-08 08:23] LABS: LYMPHOCYTE 5 % (20.0-51.0); MYELOCYTE 4 % (0-0); NUCLEATED RED BLOOD CELL 3 (0-6)
[2021-09-08 08:24] LABS: HYPOCHROMIA 1+; PLATELET ESTIMATE INCREASED (NORMAL)
[2021-09-08 08:25] LABS: BAND 18 % (0-10); NEUTROPHILS 71 % (42.0-75.2)
[2021-09-08 08:31] VITALS: BP 152/69; PULSE 97; TEMP 97.7
[2021-09-08 11:12] VITALS: BP 146/61; PULSE 98; TEMP 99.9
--- NOTE | 2021-09-08 13:46 | NUR ---
AIARVO REMOVED AT THIS TIME. MEDICATIONS FOR PAIN, DYSPNEA AND ANXIETY GIVEN. PT'S FAMILY IS AT BEDSIDE.
--- NOTE | 2021-09-08 15:03 | NUR ---
PT RESTING QUIETLY IN BED WITH FAMILY AT BEDSIDE. PT NOT SHOWING ANY SIGNS OF PAIN OR DISCOMFORT AT THIS TIME. FAMILY STATES THAT THEY HAVE NOT SEEN ANY SIGNS WELL. FAMILY STATES THAT THEY DO NOT THINK THAT SHE NEEDS ANYMORE PAIN MEDICATION AT THIS TIME. PT NOT MOANING, GRIMACING, OR MOVING. PT RESPIRATIONS ARE 16 BPM. CARE BASKET AND BLANKET GIVEN TO FAMILY. FAMILY DOES NOT STATE ANY NEEDS AT THIS TIME. CALL LIGHT WAS GIVEN AND EXPLAINED TO FAMILY IF THEY HAVE ANY NEEDS. VOICED UNDERSTANDING.
--- NOTE | 2021-09-08 15:14 | NUR ---
PT LAYING SUPINE IN BED WITH AIRVO ON. PT UNABLE TO RESPOND TO ANY QUESTIONS. ATTEMPTED TO GIVE PT A BITE OF FOOD. PT SAYING "NO,NO,NO" PT REFUSING ALL MEDICATIONS. PT WAS INCONTINENT OF URINE. PT WAS CLEANED UP AND REPOSITIONED ON SIDE. PT DOES NOT SHOW ANY S/S OF PAIN OR DISCOMFORT AT THIS TIME. CALL LIGHT WAS PLACED WITHIN REACH.
--- NOTE | 2021-09-08 16:15 | NUR ---
PT . VERIFIED VIA 2 NURSES, VINCENT LEIJA, RN AND MYSELF. PT FAMILY INFOMRED THAT THEY CAN TAKE LONG THEY WANT/NEED. DIRECTOR TOXICOLOGY WAS NOTIFIED OF PT PASSING. FAMILY TOOK ALL PT BELONGS AND 2 RINGS AND 1 NECKLACE.
--- NOTE | 2021-09-08 16:37 | NUR ---
LAN notified of patient , patient not a candidate, referral #[id number]. Family has chosen [facility], will call them when staff is ready.
--- NOTE | 2021-09-08 16:58 | NUR ---
[facility] notified.
--- NOTE | 2021-09-08 17:42 | NUR ---
PT OFF FLOOR WITH HOME. GAVE HOME PT DENTURES.
[2021-09-10 08:10] LABS: PATHOLOGY DIFF REVIEW OK
== END 2021-09-08 16:05 | disposition expired | DRG 177 ==
LOC: COL.ER 11:31 → MEDICAL 13:25
PROVIDERS: Emergency Medicine; Internal Medicine; ADMIT Internal Medicine
PROC: XW033E5 Introduction of Remdesivir Anti-infective into Peripheral Vein, Percutaneous Approach, New Technology Group 5 (ICD-10-PCS; principal; 2021-09-01)
PROC: 5A0955A Assistance with Respiratory Ventilation, Greater than 96 Consecutive Hours, High Flow/Velocity Cannula (ICD-10-PCS; 2021-09-03)
PROC: 5A09457 Assistance with Respiratory Ventilation, 24-96 Consecutive Hours, Continuous Positive Airway Pressure (ICD-10-PCS; 2021-09-03)
PROC: 02HV33Z Insertion of Infusion Device into Superior Vena Cava, Percutaneous Approach (ICD-10-PCS; 2021-09-06)
DX: U07.1 COVID-19 (principal); J12.82 Pneumonia due to coronavirus disease 2019; J96.01 Acute respiratory failure with hypoxia; I13.0 Hypertensive heart and chronic kidney disease with heart failure and stage 1 through stage 4 chronic kidney disease, or unspecified chronic kidney disease; I50.32 Chronic diastolic (congestive) heart failure; N17.9 Acute kidney failure, unspecified; E87.2 Acidosis; G93.1 Anoxic brain damage, not elsewhere classified; E87.0 Hyperosmolality and hypernatremia; Z66 Do not resuscitate; E11.42 Type 2 diabetes mellitus with diabetic polyneuropathy; E11.51 Type 2 diabetes mellitus with diabetic peripheral angiopathy without gangrene; E11.22 Type 2 diabetes mellitus with diabetic chronic kidney disease; N18.9 Chronic kidney disease, unspecified; E03.9 Hypothyroidism, unspecified; G20 Parkinson's disease; F02.80 Dementia in other diseases classified elsewhere, unspecified severity, without behavioral disturbance, psychotic disturbance, mood disturbance, and anxiety; D64.9 Anemia, unspecified; G47.30 Sleep apnea, unspecified; F32.A Depression, unspecified; G25.81 Restless legs syndrome; E87.8 Other disorders of electrolyte and fluid balance, not elsewhere classified; Z86.718 Personal history of other venous thrombosis and embolism; Z86.711 Personal history of pulmonary embolism; Z51.5 Encounter for palliative care
CPT/HCPCS: 99223-AI; 99232-AI; 99233-AI; 99239; C1751; C9113; J0248; J0696; J1100; J1650; J1815; J2060; J2270; J7050; J7120; J8540